=== PATIENT | female | born 1955 | race Caucasian/White ===

== ENCOUNTER 2017-04-18 14:37 | Outpatient (CLI) | payer OTHER ==
--- NOTE | 2017-04-21 13:36 | Mammography Report ---
DIGITAL SCREENING MAMMOGRAM: 04/18/2017 CLINICAL INDICATION: A 61-year-old, for screening. COMPARISON: 03/2016, 06/2014, 05/2013, 04/2012, 04/2011. TECHNIQUE: Routine CC and MLO projections were obtained of the breasts. FINDINGS: Parenchymal tissue within both breasts is heterogeneously dense, which may lower the sensi tivity of mammography; however, there are no dominant masses, suspicious microcalcifications, or seco ndary signs of malignancy. In comparison to the previous studies, there are no significant changes. ASSESSMENT: NO MAMMOGRAPHIC EVIDENCE OF MALIGNANCY. NO SIGNIFICANT INTERVAL CHANGES. RECOMMENDATION: Screening mammography is recommended annually. BIRADS category 1 - negative. STANDARD QUALIFYING STATEMENTS 1. This examination was reviewed with the aid of Computed-Aided Detection (CAD). 2. A negative or benign imaging report should not delay biopsy if clinically suspicious findings are present. Consider surgical consultation if warranted. More than 5% of cancers are not identified by i maging. 3. Dense breasts may obscure an underlying neoplasm. JOB #: [id number] EXT JOB #:[id number]
== END 2017-04-18 14:38 | disposition home or self-care (01) ==
LOC: DI.N 14:37
PROVIDERS: ATTEND Family Medicine
DX: Z12.31 Encounter for screening mammogram for malignant neoplasm of breast (principal)
CPT/HCPCS: 77067

== ENCOUNTER 2018-09-02 08:00 | Outpatient (CLI) | payer OTHER ==
[2018-09-02 13:11] LABS: BASOPHILS # (AUTO) 0.2 10^3/uL (0.0-0.1); BASOPHILS % (AUTO) 1.9 %; EOSINOPHILS # (AUTO) 0.1 10^3/uL (0.0-0.7); EOSINOPHILS % (AUTO) 1.8 %; HGB - HEMOGLOBIN 15.1 g/dL (12.0-16.0); LYMPHOCYTES # (AUTO) 1.4 10^3/uL (1.5-3.5); LYMPHOCYTES % (AUTO) 17.8 %; MEAN CORPUSCULAR HEMOGLOBIN 30.1 pg (27.0-31.0); MEAN CORPUSCULAR HGB CONC 33.9 g/dL (32.0-36.0); MEAN CORPUSCULAR VOLUME 88.9 fL (81.0-99.0); MEAN PLATELET VOLUME 8.2 fL (7.9-10.8); MONOCYTES # (AUTO) 0.7 10^3/uL (0.0-1.0); MONOCYTES % (AUTO) 8.5 %; NEUTROPHILS # (AUTO) 5.5 10^3/uL (1.5-6.6); PLT - PLATELET COUNT 253 10^3/uL (130-450); RED CELL DISTRIBUTION WIDTH 12.4 % (12.0-15.0); WHITE BLOOD COUNT 7.8 x10^3/uL (4.8-10.8)
[2018-09-02 13:36] LABS: ALBUMIN 4.5 g/dL (3.2-5.5); ALBUMIN/GLOBULIN RATIO 1.6 (1.0-2.2); ALKALINE PHOSPHATASE 76 IU/L (42-121); ALT ALANINE AMINOTRANSFERASE 19 IU/L (10-60); AST ASPARTATE AMINOTRANSFERASE 18 IU/L (10-42); BILIRUBIN,TOTAL 1.4 mg/dL (0.2-1.0); BUN - BLOOD UREA NITROGEN 18 mg/dL (6-20); CALCIUM 9.3 mg/dL (8.5-10.3); CARBON DIOXIDE - CO2 25 mmol/L (21-32); CHLORIDE 99 mmol/L (101-111); CHOL/HDL RATIO 4.4 (<4.4); CHOLESTEROL 200 mg/dL; CREATININE 0.8 mg/dL (0.4-1.0); GFR - MDRD 72 (>89); GLUCOSE 109 mg/dL (70-100); HDL CHOLESTEROL 45 mg/dL; LDL CHOLESTEROL,CALCULATED 129 mg/dL; LDL/HDL RATIO 2.9 (<4.4); SODIUM 134 mmol/L (135-145); TOTAL PROTEIN 7.3 g/dL (6.7-8.2); VLDL CHOLESTEROL 26 mg/dL
[2018-09-02 13:57] LABS: HB2 TOTAL 16.6 g/dL; HEMOGLOBIN A1C 0.65 g/dL; HEMOGLOBIN A1C % 5.7 % (4.6-6.2)
== END 2018-09-02 23:59 | disposition home or self-care (01) ==
LOC: LAB.WCP 08:00
PROVIDERS: ATTEND Physician Assistant
DX: E78.5 Hyperlipidemia, unspecified (principal); R73.9 Hyperglycemia, unspecified; Z79.899 Other long term (current) drug therapy
CPT/HCPCS: 36415; 80053; 80061; 83036; 83721; 85025

== ENCOUNTER 2018-11-24 13:49 | Outpatient (CLI) | payer OTHER ==
--- NOTE | 2018-11-24 14:47 | XRAY Report ---
Reason: ABDOMINAL DISCOMFORT Procedure Date: 11/24/2018 Accession Number: [id number] / [id number] Procedure: XR - Abdomen Acute CPT Code: FULL RESULT: EXAM: ABDOMINAL SERIES AND PA CHEST EXAM DATE: 11/24/2018 02:07 PM. CLINICAL HISTORY: Cramping and infraumbilical abdominal discomfort for 3 days. Fever for 3 days. COMPARISON: Chest radiograph 04/14/2017. TECHNIQUE: 2 views abdomen and 1 view chest. FINDINGS: CHEST: Lungs/Pleura: No focal opacities. No effusion or pneumothorax. Mediastinum: There is borderline overall enlargement of the cardiac silhouette with abnormal right cardiac border, rounded protrusion which is nonspecific but can be seen in the setting of pericardial defect, prominent epicardial fat pad and other etiologies. This is stable compared to 2017. ABDOMEN: Bowel Gas Pattern: There is an overall paucity of bowel gas. Ill-defined linear calcifications in the right lower quadrant potentially represent chain suture material. Free Air: None. Other: None. IMPRESSION: Nonobstructive bowel gas pattern. Correlate finding of calcifications in the right lower quadrant to potential history of bowel resection to exclude concern for foreign body. Stable appearance of the cardiac silhouette as discussed above. RADIA
== END 2018-11-24 13:50 | disposition home or self-care (01) ==
LOC: DI 13:49
PROVIDERS: ATTEND Family Medicine
DX: R10.9 Unspecified abdominal pain (principal)
CPT/HCPCS: 74022

== ENCOUNTER 2019-02-19 15:36 | Inpatient (IN) | payer OTHER ==
[2019-02-19] MEDS ORDERED: SODIUM CHLORIDE 0.9% 1,000 ML IV ONE ×2 (15:52→17:33)
--- NOTE | 2019-02-19 16:05 | ED Physician Documentation ---
PD HPI ABD PAIN - Stated complaint Stated Complaint: ABD PX - Chief complaint Chief Complaint: Abd Pain - History obtained from History obtained from: Patient - History of Present Illness Timing - onset: Yesterday (She developed central abdominal pain yesterday which overnight progressed to more right lower quadrant pain. It was associated with diarrhea that stopped this morning at 7 AM. She is been nauseous but has not vomited. She has had chills. No history of abdominal surgeries.) Review of Systems Ten Systems: 10 systems reviewed and negative Constitutional: reports: Chills Cardiac: denies: Chest pain / pressure, Palpitations Respiratory: reports: Cough (chronic). denies: Dyspnea GI: reports: Abdominal Pain, Nausea, Diarrhea. denies: Vomiting PD PAST MEDICAL HISTORY - Past Medical History Cardiovascular: High cholesterol Respiratory: None Psych: None Musculoskeletal: Osteoarthritis - Allergies Allergies/Adverse Reactions: Allergies Allergy/AdvReac Type Severity Reaction Status Date / Time Penicillins Allergy Hives Verified 02/19/19 15:40 Sulfa (Sulfonamide Allergy Hives Verified 02/19/19 15:40 Antibiotics) - Family History Family history: reports: Non contributory PD ED PE NORMAL - Vitals Vital signs reviewed: Yes - General General: Alert and oriented X 3, No acute distress - HEENT HEENT: PERRL, EOMI - Neck Neck: Supple, no meningeal sign, No bony TTP - Cardiac Cardiac: RRR, No murmur - Respiratory Respiratory: No respiratory distress, Clear bilaterally - Abdomen Abdomen: Other (Soft with focal tenderness in the right lower quadrant. No surgical signs.) - Back Back: No CVA TTP, No spinal TTP - Derm Derm: Normal color, Warm and dry - Extremities Extremities: No edema, No calf tenderness / cord - Neuro Neuro: Alert and oriented X 3, Normal speech Results - Vitals Vitals: Vital Signs - 24 hr 02/19/19 02/19/19 02/19/19 15:40 16:00 17:30 Temperature 36.8 C Heart Rate 120 H 90 142 H Respiratory 16 18 16 Rate Blood Pressure 100/60 108/68 91/43 L O2 Saturation 96 96 94 02/19/19 02/19/19 02/19/19 17:48 18:03 18:25 Temperature 38.2 C H Heart Rate 157 H 155 H 52 L Respiratory 34 H 28 H 3 L Rate Blood Pressure 91/59 L 97/61 99/88 H O2 Saturation 9 L 96 94 Oxygen O2 Source Nasal cannula - EKG (time done) 1751 Rate: Rate (enter#) (153) Rhythm: Sinus tachycardia, LAE [place]: LAD Intervals: Normal IA QRS: Normal Ischemia: Non specific changes. No: ST elevation c/w ischemia Computer interpretation: Agree with computer - Labs Labs: Laboratory Tests 02/19/19 02/19/19 02/19/19 16:00 16:00 16:00 WBC 23.9 H RBC 4.90 Hgb 14.9 Hct 44.0 MCV 89.8 MCH 30.4 MCHC 33.9 RDW 12.2 Plt Count 268 MPV 9.6 Neut # (Auto) 20.9 H Lymph # (Auto) 1.0 L [place] # (Auto) 1.6 H Eos # (Auto) 0.0 Baso # (Auto) 0.1 Absolute Nucleated RBC 0.00 Band Neuts % (Manual) Not Reportable Abnorm Lymph % (Manual) Not Reportable Nucleated RBC % 0.0 Neutrophils # (Manual) Not Reportable Lymphocytes # (Manual) Not Reportable Monocytes # (Manual) Not Reportable Eosinophils # (Manual) Not Reportable Basophils # (Manual) Not Reportable Differential Comment MANUAL=AUTO DIFF Manual Slide Review Indicated Platelet Estimate NORMAL (130-450,000) Platelet Morphology NORMAL APPEARANCE RBC Morph Micro Appear NORMAL APPEARANCE Sodium 138 Potassium 3.7 Chloride 100 L Carbon Dioxide 25 Anion Gap 13.0 BUN 15 Creatinine 0.8 Estimated GFR (MDRD) 72 L Glucose 155 H POC Whole Bld Glucose Lactic Acid Calcium 9.7 Total Bilirubin 1.5 H AST 16 ALT 16 Alkaline Phosphatase 82 Total Protein 7.5 Albumin 4.6 Globulin 2.9 Albumin/Globulin Ratio 1.6 Lipase 23 Urine Color YELLOW Urine Clarity CLOUDY Urine pH 7.0 Ur Specific [place] 1.020 Urine Protein TRACE Urine Glucose (UA) NEGATIVE Urine Ketones 15 H Urine Occult Blood SMALL H Urine Nitrite POSITIVE H Urine Bilirubin NEGATIVE Urine Urobilinogen 0.2 (NORMAL) Ur Leukocyte Esterase SMALL H Urine RBC 0-5 Urine WBC 6-10 H Ur Squamous Epith Cells MOD Squamous H Urine Bacteria Moderate H Urine Mucus Few Strands Ur Microscopic Review INDICATED Urine Culture Comments NOT INDICATED 02/19/19 02/19/19 17:38 18:09 WBC RBC Hgb Hct MCV MCH MCHC RDW Plt Count MPV Neut # (Auto) Lymph # (Auto) [place] # (Auto) Eos # (Auto) Baso # (Auto) Absolute Nucleated RBC Band Neuts % (Manual) Abnorm Lymph % (Manual) Nucleated RBC % Neutrophils # (Manual) Lymphocytes # (Manual) Monocytes # (Manual) Eosinophils # (Manual) Basophils # (Manual) Differential Comment Manual Slide Review Platelet Estimate Platelet Morphology RBC Morph Micro Appear Sodium Potassium Chloride Carbon Dioxide Anion Gap BUN Creatinine Estimated GFR (MDRD) Glucose POC Whole Bld Glucose 144 H Lactic Acid 2.3 H Calcium Total Bilirubin AST ALT Alkaline Phosphatase Total Protein Albumin Globulin Albumin/Globulin Ratio Lipase Urine Color Urine Clarity Urine pH Ur Specific [place] Urine Protein Urine Glucose (UA) Urine Ketones Urine Occult Blood Urine Nitrite Urine Bilirubin Urine Urobilinogen Ur Leukocyte Esterase Urine RBC Urine WBC Ur Squamous Epith Cells Urine Bacteria Urine Mucus Ur Microscopic Review Urine Culture Comments - Rads (name of study) CT A/P Radiology: EMP read contemporaneously (13mm appendicitis with appendicolith. Pericardial mass needing followup (shared report with pt)) CT Head Radiology: EMP read contemporaneously (NAD) PD MEDICAL DECISION MAKING - ED course ED course: 63-year-old woman presents with right lower quadrant pain, she declined pain medication, the story was very consistent with appendicitis which was proven on CT. The surgeon was called but he was in the OR so there was approached by the nurse at approximately 5:30 PM and called into the room. The patient suddenly had altered mental status. She was alert and oriented to person and place, but really not talking much. She did not have any focal neurologic deficits. She could squeeze both hands and raise either leg off the bed. She could smile. But she was definitely confused. She was sent over for CT of the head. She did not receive any medications yet at that time, the antibiotics and the Ofirmev had not yet been started. It seemed like she was just getting septic though, head CT was negative. Her mental status improved with IV fluids. Dr. Moody expeditiously took her to the operating room for source control. She received a total of 3 liters of crystalloid while in the emergency department, 2 L of saline, 1 L of LR. - Critical Care Time(min): 40 Time Includes: Direct patient care, Review records, Reassess patient, Document care, Coordinate care, Medical consult, Family consult for tx dec Data interpretation: Labs Procedures included in critical care time: Peripheral IV Procedures excluded from critical care time: EKG Departure - Departure Disposition: ED Transfer to [facility] Clinical Impression: Appendicitis Qualifiers: Appendicitis type: acute appendicitis Acute appendicitis type: with localized peritonitis Appendicitis gangrene presence: without gangrene Appendicitis perforation presence: without perforation Appendicitis abscess presence: without abscess Qualified Code(s): K35.30 - Acute appendicitis with localized peritonitis, without perforation or gangrene Sepsis Qualifiers: Sepsis type: sepsis due to unspecified organism Sepsis acute organ dysfunction status: with acute organ dysfunction Severe sepsis acute organ dysfunction type: encephalopathy Severe sepsis shock status: with septic shock Qualified Code(s): A41.9 - Sepsis, unspecified organism; R65.21 - Severe sepsis with septic shock; G93.40 - Encephalopathy, unspecified Altered mental status Qualifiers: Altered mental status type: delirium Qualified Code(s): R41.0 - Disorientation, unspecified Condition: Fair Discharge Date/Time: 02/19/19 18:39
[2019-02-19 16:09] LABS: BASOPHILS # (AUTO) 0.1 10^3/uL (0.0-0.1); BASOPHILS % (AUTO) 0.4 %; EOSINOPHILS % (AUTO) 0.1 %; HGB - HEMOGLOBIN 14.9 g/dL (12.0-16.0); LYMPHOCYTES % (AUTO) 4.2 %; MEAN CORPUSCULAR HEMOGLOBIN 30.4 pg (27.0-31.0); MEAN CORPUSCULAR HGB CONC 33.9 g/dL (32.0-36.0); MEAN CORPUSCULAR VOLUME 89.8 fL (81.0-99.0); MEAN PLATELET VOLUME 9.6 fL (7.9-10.8); MONOCYTES # (AUTO) 1.6 10^3/uL (0.0-1.0); MONOCYTES % (AUTO) 6.8 %; NEUTROPHILS # (AUTO) 20.9 10^3/uL (1.5-6.6); NEUTROPHILS % (AUTO) 87.5 %; PLT - PLATELET COUNT 268 10^3/uL (130-450); RED CELL DISTRIBUTION WIDTH 12.2 % (12.0-15.0); WHITE BLOOD COUNT 23.9 x10^3/uL (4.8-10.8)
[2019-02-19 16:21] LABS: ALBUMIN 4.6 g/dL (3.2-5.5); ALBUMIN/GLOBULIN RATIO 1.6 (1.0-2.2); BILIRUBIN,TOTAL 1.5 mg/dL (0.2-1.0); CALCIUM 9.7 mg/dL (8.5-10.3); CREATININE 0.8 mg/dL (0.4-1.0); TOTAL PROTEIN 7.5 g/dL (6.7-8.2)
[2019-02-19] MEDS ORDERED: IOVERSOL 320 100 ML VIAL IVP ONE ×2 (16:44→16:50)
[2019-02-19 16:52] LABS: DIFFERENTIAL COMMENT MANUAL=AUTO DIFF; PLATELET ESTIMATE, MANUAL NORMAL (130-450,000) (NORMAL); PLATELET MORPHOLOGY NORMAL APPEARANCE (NORMAL); RBC MORPHOLOGY (MULTIPLE) NORMAL APPEARANCE (NORMAL)
[2019-02-19] MEDS ORDERED: cefOXitin 2 GM in SODIUM CHLORIDE 0.9% MINIBAG 100 ML IV STA (17:05)
[2019-02-19] MEDS ORDERED: ACETAMINOPHEN 1,000 MG/100 ML 100 ML IV STA (17:05)
--- NOTE | 2019-02-19 17:17 | CT Report ---
Reason: IV only, RLQ pain Procedure Date: 02/19/2019 Accession Number: [id number] / [id number] Procedure: CT - Abdomen/Pelvis W CPT Code: FULL RESULT: EXAM: CT ABDOMEN AND PELVIS EXAM DATE: 02/19/2019 04:47 PM. CLINICAL HISTORY: Right lower quadrant pain. COMPARISONS: CHEST 2 VIEW PA/LAT 04/14/2017 3:48 PM ABDOMEN ACUTE 11/24/2018 1:58 PM. TECHNIQUE: Routine helical CT imaging was performed through the abdomen and pelvis. IV contrast: 90 mL Optiray 320. Enteric contrast: No. Reconstructions: Coronal and sagittal. In accordance with CT protocol optimization, one or more of the following dose reduction techniques were utilized for this exam: automated exposure control, adjustment of mA and/or KV based on patient size, or use of iterative reconstructive technique. FINDINGS: Lung Bases: Potentially enhancing solid mass along the right pericardial fat measuring 3.9 x 3.3 cm is seen. Liver: Normal. No masses. Gallbladder/Bile Ducts: Unremarkable. Spleen: Normal. Pancreas: Normal. Adrenal Glands: Normal. Kidneys: Small cyst in the right mid kidney is seen. No masses or hydronephrosis. Peritoneal Cavity/Bowel: Bowel loops demonstrate no obstruction or ileus. There is mild inflammatory changes in the right lower quadrant region. A moderately dilated appendix measuring 2.0 cm with surrounding inflammatory changes is seen consistent with appendicitis. 13 mm appendicolith is seen near the base. Additional smaller appendicolith is seen in the tip. No abscess or free air. Trace free fluid is seen along the right paracolic gutter. Pelvic Organs: Mildly enlarged partly calcified heterogeneous uterus consistent with fibroids is seen. No pelvic adenopathy or free fluid is seen. Vasculature: No aneurysms or other significant abnormality. Bones: Diffuse degenerative changes are seen in the spine. No acute osseous abnormality is demonstrated. Other: None. IMPRESSION: 1. Acute appendicitis. 13 mm appendicolith at the appendiceal base is seen. No abscess or free air. 2. Incidentally noted potentially solid enhancing mass along the right pericardial fat measuring 3.9 cm. Finding is of uncertain malignant potential. Correlation with any prior cross-sectional imaging study is recommended. If none available, consider further evaluation with PET/CT. 3. Mildly enlarged fibroid uterus. RADIA
[2019-02-19] MEDS ORDERED: CEFOTETAN DISODIUM 2 GM in SODIUM CHLORIDE 0.9% MINIBAG 100 ML IV STA (17:41)
[2019-02-19 18:05] LABS: BILIRUBIN,URINE NEGATIVE (NEGATIVE); GLUCOSE, URINE (UA) NEGATIVE (NEGATIVE); KETONES,URINE (UA) 15 mg/dL (NEGATIVE); LEUKOCYTE ESTERASE, URINE SMALL (NEGATIVE); NITRITE,URINE POSITIVE (NEGATIVE); OCCULT BLOOD,URINE SMALL (NEGATIVE); PROTEIN,URINE TRACE mg/dL (NEGATIVE); UROBILINOGEN,URINE 0.2 (NORMAL) E.U./dL (NORMAL)
[2019-02-19 18:11] LABS: CLARITY,URINE CLOUDY (CLEAR)
--- NOTE | 2019-02-19 18:25 | CT Report ---
Reason: altered Procedure Date: 02/19/2019 Accession Number: [id number] / [id number] Procedure: CT - HEAD WO CPT Code: FULL RESULT: EXAM: CT HEAD EXAM DATE: 02/19/2019 05:48 PM. CLINICAL HISTORY: Altered. COMPARISON: HEAD W/O 06/03/2013 5:20 PM. TECHNIQUE: Multiaxial CT images were obtained from the foramen magnum to the vertex. Reformats: Sagittal and coronal. IV contrast: None. In accordance with CT protocol optimization, one or more of the following dose reduction techniques were utilized for this exam: automated exposure control, adjustment of mA and/or KV based on patient size, or use of iterative reconstructive technique. FINDINGS: Parenchyma: No intraparenchymal hemorrhage. No evidence of mass, midline shift, or CT findings of infarction. Bennett-white differentiation is distinct. Extraaxial Spaces: Normal for age. No subdural or epidural collections identified. Ventricles: Normal in size and position. Sinuses and Orbits: Left maxillary and sphenoid sinus mucosal thickening, suggestive of sinusitis. Bones: No evidence of fracture or calvarial defect. Other: None. IMPRESSION: No acute intracranial abnormality. RADIA
[2019-02-19 18:29] LABS: BACTERIA,URINE Moderate /HPF (None Seen); RBC,URINE 0-5 /HPF (0-5); SQUAMOUS EPITHELIAL CELL,UR MOD Squamous (<= Few)
[2019-02-19 18:30] LABS: MUCUS,URINE Few Strands
--- NOTE | 2019-02-19 18:30 | ANESTHESIA ---
Pre-Anesthesia VS, & Labs - Diagnosis appendicitis - Procedure laparoscopic appendectomy Vital Signs: Temp Pulse Resp BP Pulse Ox 38.2 C H 155 H 28 H 97/61 96 02/19/19 17:48 02/19/19 18:03 02/19/19 18:03 02/19/19 18:03 02/19/19 18:03 Height 5 ft 3 in Weight (kg) 80.2 kg Body Mass Index 31.3 - NPO >8 hours - Is Patient ?: No - Lab Results Current Lab Results: Laboratory Tests 02/19/19 17:38: POC Whole Bld Glucose 144 H 02/19/19 16:00: Sodium 138, Potassium 3.7, Chloride 100 L, Carbon Dioxide 25, Anion Gap 13.0, BUN 15, Creatinine 0.8, Estimated GFR (MDRD) 72 L, Glucose 155 H , Calcium 9.7, Total Bilirubin 1.5 H, AST 16, ALT 16, Alkaline Phosphatase 82, Total Protein 7.5, Albumin 4.6, Globulin 2.9, Albumin/Globulin Ratio 1.6, Lipase 23 02/19/19 16:00: WBC 23.9 H, RBC 4.90, Hgb 14.9, Hct 44.0, MCV 89.8, MCH 30.4, MCHC 33.9, RDW 12.2, Plt Count 268, MPV 9.6, Neut # (Auto) 20.9 H, Lymph # (Auto) 1.0 L, Sunflower # (Auto) 1.6 H, Eos # (Auto) 0.0, Baso # (Auto) 0.1, Absolute Nucleated RBC 0.00, Band Neuts % (Manual) Not Reportable, Abnorm Lymph % (Manual) Not Reportable, Nucleated RBC % 0.0, Neutrophils # (Manual) Not Reportable, Lymphocytes # (Manual) Not Reportable, Monocytes # (Manual) Not Repo rtable, Eosinophils # (Manual) Not Reportable, Basophils # (Manual) Not Reportable, Differential Comment MANUAL=AUTO DIFF, Manual Slide Review Indicated, Platelet Estimate NORMAL (130-450,000), Platelet Morphology NORMAL APPEARANCE, RBC Morph Micro Appear NORMAL APPEARANCE Fish Bones: 02/19/19 16:00 02/19/19 16:00 Home Medications and Allergies Allergies/Adverse Reactions: Allergies Allergy/AdvReac Type Severity Reaction Status Date / Time Penicillins Allergy Hives Verified 02/19/19 15:40 Sulfa (Sulfonamide Allergy Hives Verified 02/19/19 15:40 Antibiotics) Anes History & Medical History - Anesthetic History Anesthesia Complications: reports: No previous complications - Medical History Cardiovascular: reports: High cholesterol Pulmonary: reports: None Neuro: reports: Fainting (earlier today, negative head CT) Musculoskeletal: reports: Osteoarthritis Smoking Status: Never smoker Exam General: Alert Dental: WNL Mouth Opening: Greater than 4 Fingerbreadths Neck Mobility: Normal Mallampati classification: III Thyromental Distance: less than 4 cm Respiratory: Lungs clear Cardiovascular: Regular rate, Normal S1, Normal S2, Other Plan Anesthesia Type: General Consent for Procedure(s) Verified and Reviewed: Yes Code Status: Attempt Resuscitation ASA classification: 2-Mild systemic disease Is this case an emergency?: Yes
[2019-02-19] MEDS: LACTATED RINGERS 1,000 ML IV STA ×2 (18:33→23:28)
[2019-02-19] MEDS ORDERED: BUPIVACAINE 0.5% PF 10 ML VIAL ONE (18:39)
--- NOTE | 2019-02-19 18:39 | CONSULTATION NOTE ---
Referring Provider Name of Referring Provider:: Dr. Juan Fleming Consult Date: 02/19/19 Chief Complaint - Chief Complaint Chief Complaint: Right lower quadrant pain worsened with motion History of Present Illness - Admitted From Admitted From:: [facility] ED Room 1 - History Obtained From Records Reviewed: Yes History obtained from: Patient, chart, and Dr. Fleming Exam Limitations: None - History of Present Illness HPI Comment/Other: The patient is a 63-year-old female whose symptoms started yesterday at 6 PM. The pain was initially in the chest then localizing to the right lower quadrant. Associated with nausea and worsened with motion. Worsening over the intervening time to the point where she came into the emergency department. States that she could only get in at around 2:30. History - Past Medical History Cardiovascular: reports: High cholesterol Respiratory: reports: None Neuro: reports: Fainting (earlier today, negative head CT) Psych: reports: None Musculoskeletal: reports: Osteoarthritis Meds/Allgy - Allergies Allergies/Adverse Reactions: Allergies Allergy/AdvReac Type Severity Reaction Status Date / Time Penicillins Allergy Hives Verified 02/19/19 15:40 Sulfa (Sulfonamide Allergy Hives Verified 02/19/19 15:40 Antibiotics) Review of Systems - Constitutional Constitutional: denies: Fatigue - Eyes Eyes: denies: Pain - Ears, Nose & Throat Ears, Nose & Throat: denies: Ear pain - Cardiovascular Cariovascular: reports: Chest pain - Respiratory Respiratory: denies: Cough - Gastrointestinal Gastrointestinal: reports: Abdominal pain, Nausea - Neurological Neurological: denies: General weakness, Focal weakness Exam - Vital Signs Reviewed Vital Signs: Yes Vital Signs: Vital Signs x48h Temp Pulse Resp BP Pulse Ox 02/19/19 18:25 52 L 3 L 99/88 H 94 02/19/19 18:03 155 H 28 H 97/61 96 02/19/19 17:48 38.2 C H 157 H 34 H 91/59 L 9 L 02/19/19 17:30 142 H 16 91/43 L 94 02/19/19 16:00 90 18 108/68 96 02/19/19 15:40 36.8 C 120 H 16 100/60 96 - Physical Exam General Appearance: positive: Moderate distress, Anxious Eyes Bilateral: positive: No lid inflammation, Conjunctivae nml, No scleral icterus ENT: positive: Dry mucous membranes Neck: positive: Trachea midline Respiratory: positive: Breath sounds nml, Rhonchi Cardiovascular: positive: Tachycardia Abdomen: positive: Tenderness (RLQ peritoneal.), Abnml bowel sounds (None.) Skin: positive: Pallor Extremities: positive: Non-tender, Nml appearance Neurologic/Psychiatric: positive: Oriented x3, Motor nml, Sensation nml, Mood/affect nml Conclusion/Plan - Diagnosis Diagnosis: Acute appendicitis although the presentation is somewhat atypical with a very high white blood cell count, tachycardia, hypotension and tachypnea - Plan Plan: Urgent laparoscopic appendectomy, possible open appendectomy. The indications, procedure, alternatives including no surgery, possible risks including infection (deep or superficial), bleeding requiring transfusion (with all of its risks), and were fully explained to the patient and all questions answered. I also explained the pathophysiology. I explained that following the surgery I did not want her lifting anything over 15 pounds for 6 weeks to allow for optimal healing and to decrease the likelihood that a hernia would occur. All questions were fully answered. Verbal and written consent was obtained. The patient, in preparation for surgery will be nothing by mouth, and receive either 2 gm Cefotetan or 2 gm Cefoxitin with induction. I asked her to contact me with any surgical questions and her concerns and she stated that she would. I asked her to let me know if there is any way we can make her stay at [facility] more comfortable and she stated that she would let me know. The plan is to do this operation as an outpatient procedure and keep her overnight due to her septic appearance. 45 minutes of [id number] time spent with the patient, over 80% in discussion and coordination of her care Corina disclaimer: This document was created in part using voice recognition technology. Because of the inherent limitations of the system ([email or web address] user manual states that the licensee understands that speech recognition is a statistical process and that recognition errors are inherent in the process), occasional same sounding word substitutions and grammatical errors do occur and persist despite proofreading. Please read this document for context. - Lab Results Fish Bones: 02/19/19 16:00 02/19/19 16:00
[2019-02-19] MEDS ORDERED: PHENYLEPHRINE 10 MG/ML VIAL IV ONE (18:41)
[2019-02-19] MEDS ORDERED: fentaNYL 100 MCG/2 ML VIAL IVP ONE (18:41)
[2019-02-19] MEDS ORDERED: LIDOCAINE-MPF 2% 5 ML VIAL IM ONE (18:41)
[2019-02-19] MEDS ORDERED: ETOMIDATE 40 MG/20 ML VIAL IVP ONE (18:41)
[2019-02-19] MEDS ORDERED: MIDAZOLAM 2 MG/2 ML VIAL IVP ONE (18:41)
[2019-02-19] MEDS ORDERED: NEOSTIGMINE 1 MG/1 ML 10 ML MDV IVP ONE (18:41)
[2019-02-19] MEDS ORDERED: GLYCOPYRROLATE 1 MG/5 ML VIAL IVP ONE (18:41)
[2019-02-19] MEDS ORDERED: BUPIVACAINE 0.5% PF 10 ML VIAL IM ONE (19:21)
[2019-02-19] MEDS ORDERED: LACTATED RINGERS 1,000 ML IV ONE ×4 (19:21→23:24)
[2019-02-19] MEDS ORDERED: PHENYLEPHRINE 10 MG/ML VIAL ONE ×2 (21:03→23:13)
--- NOTE | 2019-02-19 21:06 | OPERATIVE REPORT ---
Operative Report - General Procedure Date: 02/19/19 Planned Procedure: Laparoscopic appendectomy, possible open appendectomy Pre-Op Diagnosis: Acute appendicitis Procedure Performed: Laparoscopic appendectomy Post Op Diagnosis: Acute separative appendicitis with likely perforation - Procedure Note Primary Surgeon: Alex Moody MD Anesthesia Provider: Yoko George CRNA Anesthesia Technique: General ET tube, Local (30 mL of half percent Marcaine) IV Fluids (mL): 2,000 Estimated Blood Loss (mL): 10 Drain/Tube Type: Other (None.) Findings: Acute separative appendicitis with likely microperforation Complications: None - Other Other Information/Narrative: OPERATIVE DESCRIPTION/REPORT: After verbal and written informed consent was obtained detailing the risks of infection, bleeding requiring transfusion with its risks, and , and after I met with the patient confirming the surgery and the site of the surgery, the patient was brought to the operative suite urgently due to her tachycardia and hypotension and placed supine on the operating table. Great care was taken to avoid pressure points to prevent pressure necrosis or nerve injury. Monitoring devices were applied along with TEDs and pneumatic compressive stockings (to prevent DVT). The patient received preoperative antibiotics for surgical prophylaxis. Yoko George CRNA sedated and anesthetized the patient for the entire procedure. The patient was prepped and draped in the usual sterile manner. With the patient draped my initials were clearly visible. A "time in" then confirmed that the patient was identified with 3 identifiers (name, date and medical record number), the history and physical was in the chart, the signed consent confirming the procedure was in the chart, the patient was in the correct position, the aforementioned prophylactic measures were in place or given, we had the correct personnel and equipment to complete the procedure and that anesthesia, surgery and nursing were given an opportunity to express any concerns. With the agreement of everyone in the room, we proceeded with the operation. A 2 cm umbilical incision was made and dissection down to the fascia was completed in a blunt and sharp manner. The fascia was then cleared of subcutaneous tissue using a tonsil clamp and a small incision was made in the fascia gaining entry into the abdomen without incident. A 12 mm blunt tipped balloon tipped Trevon port was placed into the abdomen and the balloon inflated to keep it in place. The pneumoperitoneum was then established using carbon dioxide insufflation to a steady state pressure of 12 mmHg. Two additional 5 mm ports were placed in the midline above and below the umbilicus. The patient was then rotated slightly to their left and slightly head down (Trendelenberg). The appendix was markedly thickened with fibrinous exudate and numerous adhesions. When I would grasp the adhesions it was as though pus was being squeezed out of the adhesions. There was no visible perforation. A photograph was taken of this markedly thickened appendix. The end of the appendix was grasped with a Prestige grasper and lifted anteriorly thus revealing the appendiceal mesentery. The mesentery was taken using sequential application of the Ligasure until the base of the appendix was visualized without any adherent tissue. The base of the appendix was then stapled and transected using a laparoscopic vascular stapler. Visualization of the staple line revealed absolutely no bleeding or leak of bowel contents. The appendix was then place into an endopouch for the remainder of the case. The patient was then rotated to lie flat. The abdomen was then copiously irrigated with 2 L of warm sterile saline. The effluent returned clear. The fascia and skin were then injected with the 30 cc of % marcaine for pain control. The insufflation was released and the ports removed. With the removal of the umbilical port the Endopouch containing the appendix was also removed as were thickened adhesions that had marked fibrinous exudate and purulence attached to them.. The fascial defect was then approximated using 0-Vicryl s uture in a simple interrupted manner taking care to bury the knots. The skin incisions were approximated with 4-0 Monocryl in a subcuticular fashion. The surgical prep was removed, and Dermabond was applied. A dressing was applied. At this point a time out was performed that confirmed that all the counts were correct, the procedure that was performed, the blood loss, the urine output, the IV fluids administered, and the patients condition. Having tolerated the procedure well, the patient was subsequently extubated and taken to ICU in stable condition. Please note that the patient had received 4 L of fluid between the emergency room as well as the operating room and upon discharge from the operating room to the intensive care unit the patient was still receiving Collin-Synephrine to support her blood pressure. [employer] disclaimer: This document was created in part using voice recognition technology. Because of the inherent limitations of the system ([employer]'s [employer] user manual states that the licensee understands that speech recognition is a statistical process and that recognition errors are inherent in the process), occasional same sounding word substitutions and grammatical errors do occur and persist despite proofreading. Please read this document for context.
[2019-02-19] MEDS ORDERED: SODIUM CHLORIDE FLUSH 0.9% 10 ML SYRINGE IVP PRN (21:08)
[2019-02-19] MEDS ORDERED: HYDROmorphone 0.5 MG/0.5 ML SYRINGE IVP PRN (21:08)
[2019-02-19] MEDS ORDERED: oxyCODONE 5 MG TABLET PO PRN (21:08)
[2019-02-19] MEDS ORDERED: ONDANSETRON 4 MG/2 ML VIAL IVP PRN (21:08)
--- NOTE | 2019-02-19 21:33 | XRAY Report ---
Reason: CENTRAL LINE PLACEMENT Procedure Date: 02/19/2019 Accession Number: [id number] / [id number] Procedure: XR - Chest for Line Placement CPT Code: FULL RESULT: EXAM: CHEST RADIOGRAPHY EXAM DATE: 02/19/2019 09:27 PM. CLINICAL HISTORY: CENTRAL LINE PLACEMENT. COMPARISON: ABDOMEN ACUTE 11/24/2018 1:58 PM. TECHNIQUE: 1 view. FINDINGS: Lungs/Pleura: Moderate pulmonary edema. No focal opacities evident. No pleural effusion. No pneumothorax. Mediastinum: Status post right jugular venous catheter with its tip situated in cavoatrial junction. Within exam limitations, mild stable cardiomegaly noted. Other: Well-positioned endotracheal tube. IMPRESSION: Mild stable cardiomegaly with moderate pulmonary edema. Right jugular venous catheter and endotracheal tube are well-positioned. RADIA
[2019-02-19] MEDS: PHENYLEPHRINE 20 MG in SODIUM CHLORIDE 0.9% 248 ML IV SCH ×2 (21:40→23:45)
--- NOTE | 2019-02-19 21:42 | CONSULTATION NOTE ---
Referring Provider Name of Referring Provider:: Dr. Alex Moody Consult Date: 02/19/19 Chief Complaint - Chief Complaint Chief Complaint: Abdominal pain History of Present Illness - Admitted From Admitted From:: Home - History Obtained From Records Reviewed: Yes History obtained from: Patient's son, EMR Exam Limitations: Patient is intubated - History of Present Illness HPI Comment/Other: This is a 63 year old female with no significant past medical history who presented from home today after complaining of abdominal and chest pain that began yesterday evening. Her son tells me that she felt the pain around 6pm last night and was initially located in her chest. Then the pain became most prominent in the right lower quadrant. The patient had difficulty sleeping last night because of the pain. In the ER, she was found to be febrile, tachycardic, and hypotensive. Labs revealed significant leukocytosis with a left shift. She had a CT of the abdomen/pelvis performed which was concerning for appendicitis without an identifiable abscess. General Surgery was consulted and she went to the OR for laparoscopic appendectomy. It appeared that she suppurative appendicitis with likely perforation. She was hypotensive while in the OR and required Neosynephrine. She was given a total of 4.6L of crystalloid. She could not be extubated postoperatively due to poor tidal volumes and so she was transferred to the ICU for further management and Medicine was consulted to assist with medical and ventilatory management. History - Past Medical History Cardiovascular: reports: High cholesterol Respiratory: reports: None Psych: reports: None Musculoskeletal: reports: Osteoarthritis - Family & Social History Family History Comment/Other: Her son reports no family history to his knowledge. Social History Notes: Her son reports that she does not smoke but does occasionally drink alcohol. - Substance History Use: Uses substance without health or social issues: NONE Meds/Allgy - Allergies Allergies/Adverse Reactions: Allergies Allergy/AdvReac Type Severity Reaction Status Date / Time Penicillins Allergy Hives Verified 02/19/19 15:40 Sulfa (Sulfonamide Allergy Hives Verified 02/19/19 15:40 Antibiotics) Review of Systems - All Other Systems All Other Systems: reports: Other (Unable to obtain ROS as patient is intubated) Exam - Vital Signs Reviewed Vital Signs: Yes Vital Signs: Vital Signs x48h Temp Pulse Resp BP Pulse Ox 02/19/19 18:25 52 L 3 L 99/88 H 94 02/19/19 18:03 155 H 28 H 97/61 96 02/19/19 17:48 38.2 C H 157 H 34 H 91/59 L 9 L 02/19/19 17:30 142 H 16 91/43 L 94 02/19/19 16:00 90 18 108/68 96 02/19/19 15:40 36.8 C 120 H 16 100/60 96 - Physical Exam General Appearance: positive: No acute distress, Other (Follows commands) Eyes Bilateral: positive: Normal inspection ENT: positive: ENT inspection nml, Other (ET tube in place) Neck: positive: Nml inspection Respiratory: positive: Breath sounds nml. negative: Wheezes, Rales, Rhonchi Cardiovascular: positive: No murmur, Tachycardia. negative: Systolic murmur, Diastolic murmur Abdomen: positive: Tenderness, Abnml bowel sounds (Hypoactive bowel sounds). negative: No distention, Guarding, Rebound Skin: positive: No rash, Warm, Dry Extremities: positive: No pedal edema Neurologic/Psychiatric: positive: Other (No focal motor deficits on exam. [place] rgic from sedation but follows commands.) Conclusion/Plan - Diagnosis Diagnosis: 1) Sepsis with septic shock. 2) Acute hypoxic respiratory failure. 3) Appendicitis. 4) Lactic acidosis. 5) Pericardial mass - Plan Plan: She has sepsis with septic shock likely secondary to her appendicitis. She is hypotensive requiring pressors, tachycardic, febrile, and has significant leukocytosis with a left shift. She also has a lactic acidosis. No other obvious source of infection at this time. She does have mild pyuria but her urinalysis is not that impressive. At this time, will continue Cefotetan and Flagyl to cover for gram negatives and anaerobes. Will continue to hydrate her with crystalloid. Will add Levophed in addition to Neosynephrine. She may require Vasopressin and stress dose steroids. Dilaudid for pain control. She will require an arterial line for blood pressure monitoring. Follow up her blood cultures. NPO for now. She remains intubated post-operatively and is currently saturating mid 90's on an FiO2 Of 60%. Her x-ray is not suggestive of pulmonary edema and there is no o bvious infiltrate. Suspect her respiratory failure is secondary to her sepsis. Will continue mechanical ventilation until her hemodynamics improve. Will hope to extubate over the weekend. Propofol for sedation. She was also incidentally found to have a pericardial mass on her CT of the abdomen/pelvis. The mass is 3.9x3.3cm. She will require an outpatient PET/CT scan. - Lab Results Lab results reviewed: Yes Fish Bones: 02/19/19 16:00 02/19/19 16:00 - Diagnostic Imaging Results Diagnostic Imaging Results: positive: Final report reviewed - EKG Results EKG Interpreted Independently: Yes EKG Findings: Sinus tachycardia with nonspecific ST segment changes. Prolonged QT.
[2019-02-19] MEDS: ACETAMINOPHEN 1,000 MG/100 ML 100 ML IV SCH (21:45)
[2019-02-19] MEDS: DEXTROSE 5%-0.9% NACL 1,000 ML IV SCH (21:46)
[2019-02-19] MEDS: metroNIDAZOLE 500 MG/100 ML 500 MG/100 ML BAG IV SCH (21:46)
[2019-02-19] MEDS: SODIUM CHLORIDE FLUSH 0.9% 10 ML SYRINGE IVP SCH (21:50)
[2019-02-19] MEDS: HYDROmorphone 0.5 MG/0.5 ML SYRINGE IVP PRN (21:51)
[2019-02-19 22:00] LABS: MAGNESIUM 1.2 mg/dL (1.7-2.8); PHOSPHORUS 2.2 mg/dL (2.5-4.6)
[2019-02-19] MEDS ORDERED: PROPOFOL 1000 MG/100 ML 100 ML IV SCH (22:00)
[2019-02-19] MEDS ORDERED: CEFOTETAN DISODIUM 1 GM in SODIUM CHLORIDE 0.9% MINIBAG 100 ML IV SCH (22:00)
--- NOTE | 2019-02-19 22:02 | XRAY Report ---
Reason: ET Tube adjustment Procedure Date: 02/19/2019 Accession Number: [id number] / [id number] Procedure: XR - Chest for Line Placement CPT Code: FULL RESULT: EXAM: CHEST RADIOGRAPHY EXAM DATE: 02/19/2019 09:32 PM. CLINICAL HISTORY: ET tube adjustment. COMPARISON: CHEST FOR LINE PLACEMENT 02/19/2019 9:05 PM. TECHNIQUE: 1 view. FINDINGS: Lungs/Pleura: Low lung volumes. Hazy diffuse opacities obscuring pulmonary vasculature. No pleural effusion or pneumothorax. Mediastinum: Within exam limitations, the cardiomediastinal contour is normal. Other: Right IJ central line placed to lower SVC. Tip of endotracheal tube remains 2.7 cm above the ayse. IMPRESSION: 1. Endotracheal tube in stable position 2.7 cm above the ayse. 2. Stable central line position. 3. No pneumothorax. RADIA
[2019-02-19] MEDS ORDERED: MAGNESIUM SULFATE 2 GRAM 2 GM/50 ML BAG IV ONE (23:00)
[2019-02-19] MEDS ORDERED: POTASSIUM PHOSPHATE 15 MMOL in SODIUM CHLORIDE 0.9% 250 ML IV ONE (23:00)
[2019-02-19] MEDS ORDERED: LACTATED RINGERS 500 ML IV ONE (23:01)
[2019-02-19] MEDS: HYDROCORTISONE SUCCINATE 100 MG/2 ML VIAL IVP SCH (23:59)
[2019-02-20] MEDS ORDERED: LACTATED RINGERS 500 ML IV ONE (00:10)
[2019-02-20] MEDS ORDERED: PHENYLEPHRINE 10 MG/ML VIAL ONE ×2 (00:55→06:34)
--- NOTE | 2019-02-20 01:24 | PROCEDURE REPORT ---
Hospitalist Procedure Note - Procedure Note Procedure Note: This is a procedure note for an arterial line placed on 02/19/19 at 20:30 with the assistance of Yoko George CRNA. The procedure was performed in the ICU care unit and the indication was septic shock requiring multiple vasopressors and therefore an arterial line was placed for blood pressure monitoring. The procedure and site were verified. The patient's right wrist was prepped in sterile fashion. Ultrasound guidance was used to aid need placement. An Arrow arterial line was introduced into the radial artery. The catheter was threaded and the needle was removed but there was not blood return. The catheter was manipulated without success and was ultimately removed. Attention was then turned to the left wrist and that was prepped in sterile fashion. Ultrasound guidance was not used and an Arrow arterial line was introduced into the radial artery. The catheter was threaded and the needle was removed with appropriate blood return. A good wave form was observed. The patient tolerated the procedure well without complications. There was minimal blood loss.
[2019-02-20] MEDS: PHENYLEPHRINE 20 MG in SODIUM CHLORIDE 0.9% 248 ML IV SCH (01:30)
[2019-02-20] MEDS ORDERED: VASOPRESSIN 20 UNIT in DEXTROSE 5% 99 ML IV SCH (02:00)
[2019-02-20] MEDS: PHENYLEPHRINE IV SCH ×2 (03:30→06:54)
[2019-02-20] MEDS: SODIUM CHLORIDE 0.9% IV SCH ×2 (03:30→06:54)
[2019-02-20 04:38] LABS: BASOPHILS # (AUTO) 0.1 10^3/uL (0.0-0.1); BASOPHILS % (AUTO) 0.4 %; EOSINOPHILS % (AUTO) 0.1 %; HGB - HEMOGLOBIN 11.6 g/dL (12.0-16.0); LYMPHOCYTES # (AUTO) 0.6 10^3/uL (1.5-3.5); LYMPHOCYTES % (AUTO) 1.9 %; MEAN CORPUSCULAR HEMOGLOBIN 30.3 pg (27.0-31.0); MEAN CORPUSCULAR HGB CONC 33.1 g/dL (32.0-36.0); MEAN CORPUSCULAR VOLUME 91.4 fL (81.0-99.0); MEAN PLATELET VOLUME 10.1 fL (7.9-10.8); MONOCYTES # (AUTO) 0.9 10^3/uL (0.0-1.0); MONOCYTES % (AUTO) 2.8 %; NEUTROPHILS # (AUTO) 30.5 10^3/uL (1.5-6.6); NEUTROPHILS % (AUTO) 92.1 %; PLT - PLATELET COUNT 212 10^3/uL (130-450); RED BLOOD COUNT 3.83 10^6/uL (4.20-5.40); RED CELL DISTRIBUTION WIDTH 12.6 % (12.0-15.0); WHITE BLOOD COUNT 33.1 x10^3/uL (4.8-10.8)
[2019-02-20 04:53] LABS: ALBUMIN 2.4 g/dL (3.2-5.5); ALBUMIN/GLOBULIN RATIO 1.2 (1.0-2.2); BILIRUBIN,TOTAL 1.1 mg/dL (0.2-1.0); CREATININE 1.1 mg/dL (0.4-1.0); MAGNESIUM 1.8 mg/dL (1.7-2.8); PHOSPHORUS 3.2 mg/dL (2.5-4.6); TOTAL PROTEIN 4.4 g/dL (6.7-8.2)
[2019-02-20 05:17] LABS: ABG PH 7.38 (7.35-7.45)
[2019-02-20 05:18] LABS: ABG BASE EXCESS -9.9 mmol/L (-2.0-3.0); ABG HCO3 13.4 mmol/L (22.0-26.0); ABG OXYGEN SATURATION 95 % (94-98); ABG PCO2 23 mmHg (34-45); ABG PO2 73 mmHg (80-100); ABG TCO2 14.1 MMOL/L (21.0-29.0)
[2019-02-20 05:30] LABS: PLATELET MORPHOLOGY NORMAL APPEARANCE (NORMAL); RBC MORPHOLOGY (MULTIPLE) NORMAL APPEARANCE (NORMAL)
[2019-02-20 05:31] LABS: PLATELET ESTIMATE, MANUAL NORMAL (130-450,000) (NORMAL)
[2019-02-20] MEDS: ACETAMINOPHEN 1,000 MG/100 ML 100 ML IV SCH ×3 (05:33→17:21)
[2019-02-20] MEDS: POTASSIUM CHLOR 20 MEQ/100 ML 20 MEQ/100 ML BAG IV SCH ×4 (05:33→08:29)
[2019-02-20] MEDS: metroNIDAZOLE 500 MG/100 ML 500 MG/100 ML BAG IV SCH (05:34)
[2019-02-20] MEDS: DEXTROSE 5%-0.9% NACL 1,000 ML IV SCH (05:50)
[2019-02-20] MEDS: HYDROCORTISONE SUCCINATE 100 MG/2 ML VIAL IVP SCH ×2 (05:51→14:08)
[2019-02-20] MEDS ORDERED: CEFOTETAN DISODIUM 1 GM in SODIUM CHLORIDE 0.9% MINIBAG 100 ML IV SCH (06:00)
[2019-02-20] MEDS ORDERED: SODIUM CHLORIDE 0.9% 500 ML ONE (06:34)
[2019-02-20] MEDS ORDERED: DEXTROSE 5% 1,000 ML IV ONE (06:54)
[2019-02-20] MEDS ORDERED: SODIUM BICARBONATE ABBOJECT 50 MEQ/50 ML SYRINGE ONE ×2 (06:56→06:58)
[2019-02-20] MEDS ORDERED: SODIUM BICARBONATE 100 MEQ in DEXTROSE 5% 1,000 ML IV SCH (07:00)
[2019-02-20] MEDS ORDERED: PANTOPRAZOLE 40 MG VIAL IVP SCH (07:00)
[2019-02-20] MEDS: SODIUM CHLORIDE FLUSH 0.9% 10 ML SYRINGE IVP SCH ×2 (08:50→09:38)
[2019-02-20] MEDS ORDERED: CEFEPIME 2 GM in SODIUM CHLORIDE 0.9% MINIBAG 100 ML IV SCH (09:00)
[2019-02-20] MEDS: IMIPENEM/CILASTATIN 500 MG in SODIUM CHLORIDE 0.9% MINIBAG 100 ML IV SCH ×3 (09:20→18:13)
[2019-02-20] MEDS: HYDROmorphone 0.5 MG/0.5 ML SYRINGE IVP PRN ×2 (09:38→16:39)
[2019-02-20 10:06] LABS: ABG PCO2 36 mmHg (34-45); ABG PH 7.22 (7.35-7.45); ABG PO2 69 mmHg (80-100)
[2019-02-20 10:07] LABS: ABG BASE EXCESS -12.7 mmol/L (-2.0-3.0); ABG HCO3 14.1 mmol/L (22.0-26.0); ABG OXYGEN SATURATION 90 % (94-98); ABG TCO2 15.2 MMOL/L (21.0-29.0)
--- NOTE | 2019-02-20 11:51 | PROVIDER PROGRESS NOTE ---
Subjective - Prog Note Date Prog Note Date: 02/20/19 Prog Note Time: 11:28 - Subjective Pt reports feeling: No change Subjective: She is amazingly alert, and responsive while she is on an ET tube on a ventilator. She expresses emotions appropriately. Questions appropriately. Follows commands. She has been stable overnight with regards to vent settings, however, she is on 3 pressors. Overnight out supervisor tumblers is trying to temper too much fluids to avoid fluid overload and still maintaining her pressure. General surgery feels that the patient should be given more fluids and less pressors. General surgery's main concern is sources of shock. He wants to make sure that he is not missing any other sources of shock other than her appendix. She has grown out gram-negative rods in her blood. Current Medications - Current Medications Current Medications: Active Medications Hydrocortisone Sodium Succinate (Solu-Cortef) 100 mg IVP TID PAIGE Last Admin: 02/20/19 05:51 Dose: 100 mg Hydromorphone HCl (Dilaudid Inj Syringe) 1 mg IVP Q1H PRN PRN Reason: PAIN Last Admin: 02/20/19 09:38 Dose: 1 mg Acetaminophen (Ofirmev) 100 mls @ 400 mls/hr IV Q6H [facility] Last Infusion: 02/20/19 10:21 Dose: Infused Norepinephrine Bitartrate 8 mg (/ Dextrose) 250 mls @ 0 mls/hr IV .Q0M PAIGE; Protocol Last Admin: 02/20/19 10:51 Dose: 30 mcg/min, 56.25 mls/hr Vasopressin 20 unit/ Dextrose 100 mls @ 6 mls/hr IV .[id number] PAIGE; Protocol Last Titration: 02/20/19 08:45 Dose: 0 unit/min, 0 mls/hr Sodium Bicarbonate 100 meq/ (Dextrose) 1,100 mls @ 100 mls/hr IV .Q11H [facility] Last Admin: 02/20/19 06:49 Dose: 100 mls/hr Imipenem/Cilastatin Sodium 500 (mg/ Sodium Chloride) 100 mls @ 200 mls/hr IV Q6HR [facility] Last Infusion: 02/20/19 10:00 Dose: Infused Phenylephrine HCl 40 mg/ (Sodium Chloride) 504 mls @ 0 mls/hr IV .Q0M [facility]; Protocol Propofol (Diprivan) 100 mls @ 4.812 mls/hr IV .[id number] [facility]; Protocol Ondansetron HCl (Zofran Inj) 4 mg IVP Q6H PRN PRN Reason: Nausea / Vomiting Last Admin: 02/20/19 09:11 Dose: 4 mg Oxycodone HCl (Roxicodone) 5 mg PO Q4HR PRN PRN Reason: PAIN Pantoprazole Sodium (Protonix) 40 mg IVP QDAC [facility] Last Admin: 02/20/19 06:29 Dose: 40 mg Sodium Chloride (Normal Saline Flush 0.9%) 10 ml IVP 0100,0900,1700 [facility] Last Admin: 02/20/19 09:38 Dose: 10 ml Sodium Chloride (Normal Saline Flush 0.9%) 10 ml IVP PRN PRN PRN Reason: NEEDED PER PROVIDER ORDERS Objective - Vital Signs/Intake & Output Reviewed Vital Signs: Yes Vital Signs: Vital Signs Temp Pulse Pulse Resp BP BP Pulse Ox 02/20/19 11:05 112 H 02/20/19 11:00 117 H 24 80/57 L 94 02/20/19 10:09 114 H 02/20/19 10:00 111 H 18 81/60 L 92 02/20/19 09:00 140 H 40 H 86/57 L 93 02/20/19 08:46 105 H 02/20/19 08:28 108 H 02/20/19 08:00 37.2 C 108 H 28 H 80/66 L 81/67 L 96 Intake & Output: Intake & Output 02/17/19 02/18/19 02/19/19 02/20/19 23:59 23:59 23:59 23:59 Intake Total 2898.438 7112.533 Output Total 350 655 Balance 2548.438 6457.533 - Objective General Appearance: positive: Alert, Other (intubated, on vent.) Eyes Bilateral: positive: PERRL, EOMI Neck: positive: No JVD Respiratory: positive: No respiratory distress, Other (She was down to rate of 4-6 on vent, doing well but needed Fi02 60%. Blood gas with pH 7/216, pCO2 35.6, po2 68.7, BE -12.7). negative: Wheezes, Rales, Rhonchi Cardiovascular: positive: Regular rate & rhythm. negative: Systolic murmur, Gallop/S4, Friction rub Abdomen: positive: Other (no bowel sounds) Skin: positive: Warm, Dry, Pallor Extremities: positive: Full ROM, No pedal edema Neurologic/Psychiatric: positive: Oriented x3, CN's nml (2-12), Motor nml - Lab Results Fish Bones: 02/20/19 04:15 02/20/19 04:15 Other Labs: Lab Results x24hrs 02/20/19 02/20/19 02/20/19 Range/Units 09:40 07:50 05:15 WBC (4.8-10.8) x10^3/uL RBC (4.20-5.40) 10^6/uL Hgb (12.0-16.0) g/dL Hct (37.0-47.0) % MCV (81.0-99.0) fL MCH (27.0-31.0) pg MCHC (32.0-36.0) g/dL RDW (12.0-15.0) % Plt Count (130-450) 10^3/uL MPV (7.9-10.8) fL Neut # (Auto) (1.5-6.6) 10^3/uL Lymph # (Auto) (1.5-3.5) 10^3/uL [place] # (Auto) (0.0-1.0) 10^3/uL Eos # (Auto) (0.0-0.7) 10^3/uL Baso # (Auto) (0.0-0.1) 10^3/uL Absolute Nucleated RBC x10^3/uL Band Neuts % (Manual) Abnorm Lymph % (Manual) Nucleated RBC % /100WBC Neutrophils # (Manual) Lymphocytes # (Manual) Monocytes # (Manual) Eosinophils # (Manual) Basophils # (Manual) Differential Comment Manual Slide Review Platelet Estimate (NORMAL) Platelet Morphology (NORMAL) RBC Morph Micro Appear (NORMAL) Bld Gas Analysis Time [id number] [id number] Sample Site A-LINE ABG pH 7.22 L 7.38 (7.35-7.45) ABG pCO2 36 23 L* (34-45) mmHg ABG pO2 69 L 73 L (80-100) mmHg ABG HCO3 14.1 L 13.4 L (22.0-26.0) mmol/L ABG Total CO2 15.2 L 14.1 L (21.0-29.0) MMOL/L ABG O2 Saturation 90 L 95 (94-98) % ABG Base Excess -12.7 L -9.9 L (-2.0-3.0) mmol/L Hilton Test NOT APPLICABLE NOT APPLICABLE Respiration Rate 20 b/min O2 Delivery Device VENTILATOR Vent Mode SIMV FiO2 50.00 Tidal Volume 550 mL PEEP 5 cmH2O Pressure Support Vent 15 cmH2O Sodium (135-145) mmol/L Potassium (3.5-5.0) mmol/L Chloride (101-111) mmol/L Carbon Dioxide (21-32) mmol/L Anion Gap (6-13) BUN (6-20) mg/dL Creatinine (0.4-1.0) mg/dL Estimated GFR (MDRD) (>89) Glucose (70-100) mg/dL POC Whole Bld Glucose (70 - 100) mg/dL Lactic Acid 3.6 H* (0.5-2.2) mmol/L Calcium (8.5-10.3) mg/dL Phosphorus (2.5-4.6) mg/dL Magnesium (1.7-2.8) mg/dL Total Bilirubin (0.2-1.0) mg/dL AST (10-42) IU/L ALT (10-60) IU/L Alkaline Phosphatase (42-121) IU/L Total Protein (6.7-8.2) g/dL Albumin (3.2-5.5) g/dL Globulin (2.1-4.2) g/dL Albumin/Globulin Ratio (1.0-2.2) Lipase (22-51) U/L Urine Color Urine Clarity (CLEAR) Urine pH (5.0-7.5) PH Ur Specific [place] (1.002-1.030) Urine Protein (NEGATIVE) mg/dL Urine Glucose (UA) (NEGATIVE) mg/dL Urine Ketones (NEGATIVE) mg/dL Urine Occult Blood (NEGATIVE) Urine Nitrite (NEGATIVE) Urine Bilirubin (NEGATIVE) Urine Urobilinogen (NORMAL) E.U./dL Ur Leukocyte Esterase (NEGATIVE) Urine RBC (0-5) /HPF Urine WBC (0-5) /HPF Ur Squamous Epith Cells (<= Few) Urine Bacteria (None Seen) /HPF Urine Mucus Ur Microscopic Review Urine Culture Comments Nasal Screen MRSA (PCR) (NEGATIVE) 02/20/19 02/20/19 02/20/19 Range/Units 04:15 04:15 04:15 WBC 33.1 H (4.8-10.8) x10^3/uL RBC 3.83 L (4.20-5.40) 10^6/uL Hgb 11.6 L (12.0-16.0) g/dL Hct 35.0 L (37.0-47.0) % MCV 91.4 (81.0-99.0) fL MCH 30.3 (27.0-31.0) pg MCHC 33.1 (32.0-36.0) g/dL RDW 12.6 (12.0-15.0) % Plt Count 212 (130-450) 10^3/uL MPV 10.1 (7.9-10.8) fL Neut # (Auto) 30.5 H (1.5-6.6) 10^3/uL Lymph # (Auto) 0.6 L (1.5-3.5) 10^3/uL [place] # (Auto) 0.9 (0.0-1.0) 10^3/uL Eos # (Auto) 0.0 (0.0-0.7) 10^3/uL Baso # (Auto) 0.1 (0.0-0.1) 10^3/uL Absolute Nucleated RBC 0.00 x10^3/uL Band Neuts % (Manual) Abnorm Lymph % (Manual) Nucleated RBC % 0.0 /100WBC Neutrophils # (Manual) Lymphocytes # (Manual) Monocytes # (Manual) Eosinophils # (Manual) Basophils # (Manual) Differential Comment Manual Slide Review Indicated Platelet Estimate NORMAL (130-450,000) (NORMAL) Platelet Morphology NORMAL APPEARANCE (NORMAL) RBC Morph Micro Appear NORMAL APPEARANCE (NORMAL) Bld Gas Analysis Time Sample Site ABG pH (7.35-7.45) ABG pCO2 (34-45) mmHg ABG pO2 (80-100) mmHg ABG HCO3 (22.0-26.0) mmol/L ABG Total CO2 (21.0-29.0) MMOL/L ABG O2 Saturation (94-98) % ABG Base Excess (-2.0-3.0) mmol/L Hilton Test Respiration Rate b/min O2 Delivery Device Vent Mode FiO2 Tidal Volume mL PEEP cmH2O Pressure Support Vent cmH2O Sodium 134 L (135-145) mmol/L Potassium 2.9 L (3.5-5.0) mmol/L Chloride 108 (101-111) mmol/L Carbon Dioxide 16 L (21-32) mmol/L Anion Gap 10.0 (6-13) BUN 16 (6-20) mg/dL Creatinine 1.1 H (0.4-1.0) mg/dL Estimated GFR (MDRD) 50 L (>89) Glucose 233 H (70-100) mg/dL POC Whole Bld Glucose (70 - 100) mg/dL Lactic Acid 3.6 H* (0.5-2.2) mmol/L Calcium 7.0 L (8.5-10.3) mg/dL Phosphorus 3.2 (2.5-4.6) mg/dL Magnesium 1.8 (1.7-2.8) mg/dL Total Bilirubin 1.1 H (0.2-1.0) mg/dL AST 29 (10-42) IU/L ALT 17 (10-60) IU/L Alkaline Phosphatase 62 (42-121) IU/L Total Protein 4.4 L (6.7-8.2) g/dL Albumin 2.4 L (3.2-5.5) g/dL Globulin 2.0 L (2.1-4.2) g/dL Albumin/Globulin Ratio 1.2 (1.0-2.2) Lipase (22-51) U/L Urine Color Urine Clarity (CLEAR) Urine pH (5.0-7.5) PH Ur Specific [place] (1.002-1.030) Urine Protein (NEGATIVE) mg/dL Urine Glucose (UA) (NEGATIVE) mg/dL Urine Ketones (NEGATIVE) mg/dL Urine Occult Blood (NEGATIVE) Urine Nitrite (NEGATIVE) Urine Bilirubin (NEGATIVE) Urine Urobilinogen (NORMAL) E.U./dL Ur Leukocyte Esterase (NEGATIVE) Urine RBC (0-5) /HPF Urine WBC (0-5) /HPF Ur Squamous Epith Cells (<= Few) Urine Bacteria (None Seen) /HPF Urine Mucus Ur Microscopic Review Urine Culture Comments Nasal Screen MRSA (PCR) (NEGATIVE) 02/19/19 02/19/19 02/19/19 Range/Units 23:55 21:39 21:39 WBC (4.8-10.8) x10^3/uL RBC (4.20-5.40) 10^6/uL Hgb (12.0-16.0) g/dL Hct (37.0-47.0) % MCV (81.0-99.0) fL MCH (27.0-31.0) pg MCHC (32.0-36.0) g/dL RDW (12.0-15.0) % Plt Count (130-450) 10^3/uL MPV (7.9-10.8) fL Neut # (Auto) (1.5-6.6) 10^3/uL Lymph # (Auto) (1.5-3.5) 10^3/uL [place] # (Auto) (0.0-1.0) 10^3/uL Eos # (Auto) (0.0-0.7) 10^3/uL Baso # (Auto) (0.0-0.1) 10^3/uL Absolute Nucleated RBC x10^3/uL Band Neuts % (Manual) Abnorm Lymph % (Manual) Nucleated RBC % /100WBC Neutrophils # (Manual) Lymphocytes # (Manual) Monocytes # (Manual) Eosinophils # (Manual) Basophils # (Manual) Differential Comment Manual Slide Review Platelet Estimate (NORMAL) Platelet Morphology (NORMAL) RBC Morph Micro Appear (NORMAL) Bld Gas Analysis Time Sample Site ABG pH (7.35-7.45) ABG pCO2 (34-45) mmHg ABG pO2 (80-100) mmHg ABG HCO3 (22.0-26.0) mmol/L ABG Total CO2 (21.0-29.0) MMOL/L ABG O2 Saturation (94-98) % ABG Base Excess (-2.0-3.0) mmol/L Hilton Test Respiration Rate b/min O2 Delivery Device Vent Mode FiO2 Tidal Volume mL PEEP cmH2O Pressure Support Vent cmH2O Sodium (135-145) mmol/L Potassium (3.5-5.0) mmol/L Chloride (101-111) mmol/L Carbon Dioxide (21-32) mmol/L Anion Gap (6-13) BUN (6-20) mg/dL Creatinine (0.4-1.0) mg/dL Estimated GFR (MDRD) (>89) Glucose (70-100) mg/dL POC Whole Bld Glucose (70 - 100) mg/dL Lactic Acid 5.6 H* 4.5 H* (0.5-2.2) mmol/L Calcium (8.5-10.3) mg/dL Phosphorus 2.2 L (2.5-4.6) mg/dL Magnesium 1.2 L (1.7-2.8) mg/dL Total Bilirubin (0.2-1.0) mg/dL AST (10-42) IU/L ALT (10-60) IU/L Alkaline Phosphatase (42-121) IU/L Total Protein (6.7-8.2) g/dL Albumin (3.2-5.5) g/dL Globulin (2.1-4.2) g/dL Albumin/Globulin Ratio (1.0-2.2) Lipase (22-51) U/L Urine Color Urine Clarity (CLEAR) Urine pH (5.0-7.5) PH Ur Specific [place] (1.002-1.030) Urine Protein (NEGATIVE) mg/dL Urine Glucose (UA) (NEGATIVE) mg/dL Urine Ketones (NEGATIVE) mg/dL Urine Occult Blood (NEGATIVE) Urine Nitrite (NEGATIVE) Urine Bilirubin (NEGATIVE) Urine Urobilinogen (NORMAL) E.U./dL Ur Leukocyte Esterase (NEGATIVE) Urine RBC (0-5) /HPF Urine WBC (0-5) /HPF Ur Squamous Epith Cells (<= Few) Urine Bacteria (None Seen) /HPF Urine Mucus Ur Microscopic Review Urine Culture Comments Nasal Screen MRSA (PCR) (NEGATIVE) 02/19/19 02/19/19 02/19/19 Range/Units 21:15 18:09 17:38 WBC (4.8-10.8) x10^3/uL RBC (4.20-5.40) 10^6/uL Hgb (12.0-16.0) g/dL Hct (37.0-47.0) % MCV (81.0-99.0) fL MCH (27.0-31.0) pg MCHC (32.0-36.0) g/dL RDW (12.0-15.0) % Plt Count (130-450) 10^3/uL MPV (7.9-10.8) fL Neut # (Auto) (1.5-6.6) 10^3/uL Lymph # (Auto) (1.5-3.5) 10^3/uL [place] # (Auto) (0.0-1.0) 10^3/uL Eos # (Auto) (0.0-0.7) 10^3/uL Baso # (Auto) (0.0-0.1) 10^3/uL Absolute Nucleated RBC x10^3/uL Band Neuts % (Manual) Abnorm Lymph % (Manual) Nucleated RBC % /100WBC Neutrophils # (Manual) Lymphocytes # (Manual) Monocytes # (Manual) Eosinophils # (Manual) Basophils # (Manual) Differential Comment Manual Slide Review Platelet Estimate (NORMAL) Platelet Morphology (NORMAL) RBC Morph Micro Appear (NORMAL) Bld Gas Analysis Time Sample Site ABG pH (7.35-7.45) ABG pCO2 (34-45) mmHg ABG pO2 (80-100) mmHg ABG HCO3 (22.0-26.0) mmol/L ABG Total CO2 (21.0-29.0) MMOL/L ABG O2 Saturation (94-98) % ABG Base Excess (-2.0-3.0) mmol/L Hilton Test Respiration Rate b/min O2 Delivery Device Vent Mode FiO2 Tidal Volume mL PEEP cmH2O Pressure Support Vent cmH2O Sodium (135-145) mmol/L Potassium (3.5-5.0) mmol/L Chloride (101-111) mmol/L Carbon Dioxide (21-32) mmol/L Anion Gap (6-13) BUN (6-20) mg/dL Creatinine (0.4-1.0) mg/dL Estimated GFR (MDRD) (>89) Glucose (70-100) mg/dL POC Whole Bld Glucose 144 H (70 - 100) mg/dL Lactic Acid 2.3 H (0.5-2.2) mmol/L Calcium (8.5-10.3) mg/dL Phosphorus (2.5-4.6) mg/dL Magnesium (1.7-2.8) mg/dL Total Bilirubin (0.2-1.0) mg/dL AST (10-42) IU/L ALT (10-60) IU/L Alkaline Phosphatase (42-121) IU/L Total Protein (6.7-8.2) g/dL Albumin (3.2-5.5) g/dL Globulin (2.1-4.2) g/dL Albumin/Globulin Ratio (1.0-2.2) Lipase (22-51) U/L Urine Color Urine Clarity (CLEAR) Urine pH (5.0-7.5) PH Ur Specific [place] (1.002-1.030) Urine Protein (NEGATIVE) mg/dL Urine Glucose (UA) (NEGATIVE) mg/dL Urine Ketones (NEGATIVE) mg/dL Urine Occult Blood (NEGATIVE) Urine Nitrite (NEGATIVE) Urine Bilirubin (NEGATIVE) Urine Urobilinogen (NORMAL) E.U./dL Ur Leukocyte Esterase (NEGATIVE) Urine RBC (0-5) /HPF Urine WBC (0-5) /HPF Ur Squamous Epith Cells (<= Few) Urine Bacteria (None Seen) /HPF Urine Mucus Ur Microscopic Review Urine Culture Comments Nasal Screen MRSA (PCR) NEGATIVE (NEGATIVE) 02/19/19 02/19/19 02/19/19 Range/Units 16:00 16:00 16:00 WBC 23.9 H (4.8-10.8) x10^3/uL RBC 4.90 (4.20-5.40) 10^6/uL Hgb 14.9 (12.0-16.0) g/dL Hct 44.0 (37.0-47.0) % MCV 89.8 (81.0-99.0) fL MCH 30.4 (27.0-31.0) pg MCHC 33.9 (32.0-36.0) g/dL RDW 12.2 (12.0-15.0) % Plt Count 268 (130-450) 10^3/uL MPV 9.6 (7.9-10.8) fL Neut # (Auto) 20.9 H (1.5-6.6) 10^3/uL Lymph # (Auto) 1.0 L (1.5-3.5) 10^3/uL [place] # (Auto) 1.6 H (0.0-1.0) 10^3/uL Eos # (Auto) 0.0 (0.0-0.7) 10^3/uL Baso # (Auto) 0.1 (0.0-0.1) 10^3/uL Absolute Nucleated RBC 0.00 x10^3/uL Band Neuts % (Manual) Not Reportable Abnorm Lymph % (Manual) Not Reportable Nucleated RBC % 0.0 /100WBC Neutrophils # (Manual) Not Reportable Lymphocytes # (Manual) Not Reportable Monocytes # (Manual) Not Reportable Eosinophils # (Manual) Not Reportable Basophils # (Manual) Not Reportable Differential Comment MANUAL=AUTO DIFF Manual Slide Review Indicated Platelet Estimate NORMAL (130-450,000) (NORMAL) Platelet Morphology NORMAL APPEARANCE (NORMAL) RBC Morph Micro Appear NORMAL APPEARANCE (NORMAL) Bld Gas Analysis Time Sample Site ABG pH (7.35-7.45) ABG pCO2 (34-45) mmHg ABG pO2 (80-100) mmHg ABG HCO3 (22.0-26.0) mmol/L ABG Total CO2 (21.0-29.0) MMOL/L ABG O2 Saturation (94-98) % ABG Base Excess (-2.0-3.0) mmol/L Hilton Test Respiration Rate b/min O2 Delivery Device Vent Mode FiO2 Tidal Volume mL PEEP cmH2O Pressure Support Vent cmH2O Sodium 138 (135-145) mmol/L Potassium 3.7 (3.5-5.0) mmol/L Chloride 100 L (101-111) mmol/L Carbon Dioxide 25 (21-32) mmol/L Anion Gap 13.0 (6-13) BUN 15 (6-20) mg/dL Creatinine 0.8 (0.4-1.0) mg/dL Estimated GFR (MDRD) 72 L (>89) Glucose 155 H (70-100) mg/dL POC Whole Bld Glucose (70 - 100) mg/dL Lactic Acid (0.5-2.2) mmol/L Calcium 9.7 (8.5-10.3) mg/dL Phosphorus (2.5-4.6) mg/dL Magnesium (1.7-2.8) mg/dL Total Bilirubin 1.5 H (0.2-1.0) mg/dL AST 16 (10-42) IU/L ALT 16 (10-60) IU/L Alkaline Phosphatase 82 (42-121) IU/L Total Protein 7.5 (6.7-8.2) g/dL Albumin 4.6 (3.2-5.5) g/dL Globulin 2.9 (2.1-4.2) g/dL Albumin/Globulin Ratio 1.6 (1.0-2.2) Lipase 23 (22-51) U/L Urine Color YELLOW Urine Clarity CLOUDY (CLEAR) Urine pH 7.0 (5.0-7.5) PH Ur Specific [place] 1.020 (1.002-1.030) Urine Protein TRACE (NEGATIVE) mg/dL Urine Glucose (UA) NEGATIVE (NEGATIVE) mg/dL Urine Ketones 15 H (NEGATIVE) mg/dL Urine Occult Blood SMALL H (NEGATIVE) Urine Nitrite POSITIVE H (NEGATIVE) Urine Bilirubin NEGATIVE (NEGATIVE) Urine Urobilinogen 0.2 (NORMAL) (NORMAL) E.U./dL Ur Leukocyte Esterase SMALL H (NEGATIVE) Urine RBC 0-5 (0-5) /HPF Urine WBC 6-10 H (0-5) /HPF Ur Squamous Epith Cells MOD Squamous H (<= Few) Urine Bacteria Moderate H (None Seen) /HPF Urine Mucus Few Strands Ur Microscopic Review INDICATED Urine Culture Comments NOT INDICATED Nasal Screen MRSA (PCR) (NEGATIVE) Sepsis Event Note (H) - Evaluation Current Stage of Sepsis: Sepsis Possible source of Sepsis: positive: GI tract/intra-abdominal Confirmed Source and Organism (if known) of Sepsis: gram negative robert - Sepsis Criteria Sepsis Criteria: Recorded Temperature greater than 38.3C or Less than 36C, Respiratory: Increasing oxygen requirements, WBC count greater than 10% bands, SBP drop more than 40mHg, SBP less than 90 mmHg Assessment/Plan - Problem List (1) Severe sepsis with acute organ dysfunction due to Gram negative bacteria Impression: her organ dysfunction is respiratory failure and AMANDO. She is mentally very lucid and appropriate. Yesterday she had encephalopathy. The vent is making her uncomfortable but she denies cp. Her urinalysis was positive for UTI yesterday. Blood cultures are GNR in both set. Baccteremia will require a total of 10 days of abx. Plan: at this time, no other source, except for UA, identified to cause her septic shock to answer surgery question. will recheck EKG and troponin for expanded workup. If these are negative, we do don't suspect other causes than UTI and appendicitis Day #2 abx. Currently on imepenem per surgery change Day #1 after one day of Cefotetan Continue pressors per surgery orders Make sure 10 days of abx starting today, so until stop on 03/01. will sign off case once EKG and troponin are back. (2) Acute respiratory failure with hypoxia Impression: from sepsis and metabolic acidosis seen on ABG. Will maintain current vent support. Anesthesiologist, Doris, has warned that we are not to extubated until anesthesia support is at bedside. Neck and chin anatomy is difficult to manage and they want to be there once we do extubate. curent still with metabolic acidosis and ongoing O2 requirement. will add some sedation since she is so alert and is starting to become uncomfortable with the tube. started and stopped IV bicarb. (3) Appendicitis Impression: POD #1. General surgery is admitting service and we are consult. will follow as needed to answer questions asked. Qualifiers: Appendicitis type: acute appendicitis Acute appendicitis type: with localized peritonitis Appendicitis gangrene presence: without gangrene Appendicitis perforation presence: without perforation Appendicitis abscess presence: without abscess Qualified Code(s): K35.30 - Acute appendicitis with localized peritonitis, without perforation or gangrene (4) Pericardial mass Impression: I mentioned this to son and patient. at this time our focus is her infection and shock response. once that has passed we can discuss further workup needed once she is out of the hospital. (5) AMANDO (acute kidney injury) Impression: most likely from prerenal azotemia from hypotension. was 0.8>1.1 Plan: avoid nephrotoxic agents monitor we are working on getting BP up with pressors and fluids. (6) Hypokalemia Impression: ICU electrolyte protocol.
[2019-02-20] MEDS ORDERED: SODIUM CHLORIDE 0.9% IV SCH (12:00)
[2019-02-20] MEDS ORDERED: PROPOFOL 1000 MG/100 ML 100 ML IV SCH (12:00)
[2019-02-20] MEDS ORDERED: PHENYLEPHRINE IV SCH (12:00)
--- NOTE | 2019-02-20 12:45 | PROVIDER PROGRESS NOTE ---
Subjective - General Admit Date: 02/19/19 Procedure Date: 02/19/19 Post Op Days: 1 Procedure Performed: Laparoscopic appendectomy - Review of Systems Wound/Incisions: positive: Dressing dry and intact General: positive: No symptoms, Other (Note that the patient is completely cogent and responding appropriately while intubated. Follows every request/command.) HEENT: positive: No symptoms Pulmonary: positive: Other (Intubated.) Cardiovascular: positive: No symptoms Gastrointestinal: positive: Abdominal pain Genitourinary: positive: Other ([place] in place.) Musculoskeletal: positive: No symptoms Skin: positive: No symptoms All Other Systems: positive: Other (Unable to obtain ROS as patient is intubated) Objective - Patient Data Reviewed Vital Signs: Yes Vital Signs: Vital Signs x48h Temp Pulse Pulse Resp BP BP Pulse Ox 02/20/19 12:00 36.1 C L 121 H 22 86/55 L 79/60 L 96 02/20/19 11:05 112 H 02/20/19 11:00 117 H 24 80/57 L 94 02/20/19 10:09 114 H 02/20/19 10:00 111 H 18 81/60 L 92 02/20/19 09:00 140 H 40 H 86/57 L 93 02/20/19 08:46 105 H 02/20/19 08:28 108 H 02/20/19 08:00 37.2 C 108 H 28 H 80/66 L 81/67 L 96 02/20/19 07:00 107 H 27 H 122/70 95 02/20/19 06:42 92 02/20/19 06:00 100 21 99/65 83/65 L 98 02/20/19 05:00 98 20 95/63 81/63 L 97 02/20/19 04:53 96 Weight: Weight 02/18/19 02/19/19 02/20/19 23:59 23:59 23:59 Weight (kg) 80.2 kg Intake & Output: Intake and Output Totals x24h 02/18/19 02/19/19 02/20/19 23:59 23:59 23:59 Intake Total 2898.438 7273.555 Output Total 350 715 Balance 2548.438 6558.555 - Lab Results Lab Results: 02/20/19 04:15 02/20/19 04:15 Other Lab Results: Lab Results x24hrs 02/20/19 02/20/19 02/20/19 Range/Units 09:40 07:50 05:15 WBC (4.8-10.8) x10^3/uL RBC (4.20-5.40) 10^6/uL Hgb (12.0-16.0) g/dL Hct (37.0-47.0) % MCV (81.0-99.0) fL MCH (27.0-31.0) pg MCHC (32.0-36.0) g/dL RDW (12.0-15.0) % Plt Count (130-450) 10^3/uL MPV (7.9-10.8) fL Neut # (Auto) (1.5-6.6) 10^3/uL Lymph # (Auto) (1.5-3.5) 10^3/uL [place] # (Auto) (0.0-1.0) 10^3/uL Eos # (Auto) (0.0-0.7) 10^3/uL Baso # (Auto) (0.0-0.1) 10^3/uL Absolute Nucleated RBC x10^3/uL Band Neuts % (Manual) Abnorm Lymph % (Manual) Nucleated RBC % /100WBC Neutrophils # (Manual) Lymphocytes # (Manual) Monocytes # (Manual) Eosinophils # (Manual) Basophils # (Manual) Differential Comment Manual Slide Review Platelet Estimate (NORMAL) Platelet Morphology (NORMAL) RBC Morph Micro Appear (NORMAL) Bld Gas Analysis Time [id number] Sample Site A-LINE ABG pH 7.22 L 7.38 (7.35-7.45) ABG pCO2 36 23 L* (34-45) mmHg ABG pO2 69 L 73 L (80-100) mmHg ABG HCO3 14.1 L 13.4 L (22.0-26.0) mmol/L ABG Total CO2 15.2 L 14.1 L (21.0-29.0) MMOL/L ABG O2 Saturation 90 L 95 (94-98) % ABG Base Excess -12.7 L -9.9 L (-2.0-3.0) mmol/L Hilton Test NOT APPLICABLE NOT APPLICABLE Respiration Rate 20 b/min O2 Delivery Device VENTILATOR Vent Mode SIMV FiO2 50.00 Tidal Volume 550 mL PEEP 5 cmH2O Pressure Support Vent 15 cmH2O Sodium (135-145) mmol/L Potassium (3.5-5.0) mmol/L Chloride (101-111) mmol/L Carbon Dioxide (21-32) mmol/L Anion Gap (6-13) BUN (6-20) mg/dL Creatinine (0.4-1.0) mg/dL Estimated GFR (MDRD) (>89) Glucose (70-100) mg/dL POC Whole Bld Glucose (70 - 100) mg/dL Lactic Acid 3.6 H* (0.5-2.2) mmol/L Calcium (8.5-10.3) mg/dL Phosphorus (2.5-4.6) mg/dL Magnesium (1.7-2.8) mg/dL Total Bilirubin (0.2-1.0) mg/dL AST (10-42) IU/L ALT (10-60) IU/L Alkaline Phosphatase (42-121) IU/L Total Protein (6.7-8.2) g/dL Albumin (3.2-5.5) g/dL Globulin (2.1-4.2) g/dL Albumin/Globulin Ratio (1.0-2.2) Lipase (22-51) U/L Urine Color Urine Clarity (CLEAR) Urine pH (5.0-7.5) PH Ur Specific [place] (1.002-1.030) Urine Protein (NEGATIVE) mg/dL Urine Glucose (UA) (NEGATIVE) mg/dL Urine Ketones (NEGATIVE) mg/dL Urine Occult Blood (NEGATIVE) Urine Nitrite (NEGATIVE) Urine Bilirubin (NEGATIVE) Urine Urobilinogen (NORMAL) E.U./dL Ur Leukocyte Esterase (NEGATIVE) Urine RBC (0-5) /HPF Urine WBC (0-5) /HPF Ur Squamous Epith Cells (<= Few) Urine Bacteria (None Seen) /HPF Urine Mucus Ur Microscopic Review Urine Culture Comments Nasal Screen MRSA (PCR) (NEGATIVE) 02/20/19 02/20/19 02/20/19 Range/Units 04:15 04:15 04:15 WBC 33.1 H (4.8-10.8) x10^3/uL RBC 3.83 L (4.20-5.40) 10^6/uL Hgb 11.6 L (12.0-16.0) g/dL Hct 35.0 L (37.0-47.0) % MCV 91.4 (81.0-99.0) fL MCH 30.3 (27.0-31.0) pg MCHC 33.1 (32.0-36.0) g/dL RDW 12.6 (12.0-15.0) % Plt Count 212 (130-450) 10^3/uL MPV 10.1 (7.9-10.8) fL Neut # (Auto) 30.5 H (1.5-6.6) 10^3/uL Lymph # (Auto) 0.6 L (1.5-3.5) 10^3/uL [place] # (Auto) 0.9 (0.0-1.0) 10^3/uL Eos # (Auto) 0.0 (0.0-0.7) 10^3/uL Baso # (Auto) 0.1 (0.0-0.1) 10^3/uL Absolute Nucleated RBC 0.00 x10^3/uL Band Neuts % (Manual) Abnorm Lymph % (Manual) Nucleated RBC % 0.0 /100WBC Neutrophils # (Manual) Lymphocytes # (Manual) Monocytes # (Manual) Eosinophils # (Manual) Basophils # (Manual) Differential Comment Manual Slide Review Indicated Platelet Estimate NORMAL (130-450,000) (NORMAL) Platelet Morphology NORMAL APPEARANCE (NORMAL) RBC Morph Micro Appear NORMAL APPEARANCE (NORMAL) Bld Gas Analysis Time Sample Site ABG pH (7.35-7.45) ABG pCO2 (34-45) mmHg ABG pO2 (80-100) mmHg ABG HCO3 (22.0-26.0) mmol/L ABG Total CO2 (21.0-29.0) MMOL/L ABG O2 Saturation (94-98) % ABG Base Excess (-2.0-3.0) mmol/L Hilton Test Respiration Rate b/min O2 Delivery Device Vent Mode FiO2 Tidal Volume mL PEEP cmH2O Pressure Support Vent cmH2O Sodium 134 L (135-145) mmol/L Potassium 2.9 L (3.5-5.0) mmol/L Chloride 108 (101-111) mmol/L Carbon Dioxide 16 L (21-32) mmol/L Anion Gap 10.0 (6-13) BUN 16 (6-20) mg/dL Creatinine 1.1 H (0.4-1.0) mg/dL Estimated GFR (MDRD) 50 L (>89) Glucose 233 H (70-100) mg/dL POC Whole Bld Glucose (70 - 100) mg/dL Lactic Acid 3.6 H* (0.5-2.2) mmol/L Calcium 7.0 L (8.5-10.3) mg/dL Phosphorus 3.2 (2.5-4.6) mg/dL Magnesium 1.8 (1.7-2.8) mg/dL Total Bilirubin 1.1 H (0.2-1.0) mg/dL AST 29 (10-42) IU/L ALT 17 (10-60) IU/L Alkaline Phosphatase 62 (42-121) IU/L Total Protein 4.4 L (6.7-8.2) g/dL Albumin 2.4 L (3.2-5.5) g/dL Globulin 2.0 L (2.1-4.2) g/dL Albumin/Globulin Ratio 1.2 (1.0-2.2) Lipase (22-51) U/L Urine Color Urine Clarity (CLEAR) Urine pH (5.0-7.5) PH Ur Specific [place] (1.002-1.030) Urine Protein (NEGATIVE) mg/dL Urine Glucose (UA) (NEGATIVE) mg/dL Urine Ketones (NEGATIVE) mg/dL Urine Occult Blood (NEGATIVE) Urine Nitrite (NEGATIVE) Urine Bilirubin (NEGATIVE) Urine Urobilinogen (NORMAL) E.U./dL Ur Leukocyte Esterase (NEGATIVE) Urine RBC (0-5) /HPF Urine WBC (0-5) /HPF Ur Squamous Epith Cells (<= Few) Urine Bacteria (None Seen) /HPF Urine Mucus Ur Microscopic Review Urine Culture Comments Nasal Screen MRSA (PCR) (NEGATIVE) 02/19/19 02/19/19 02/19/19 Range/Units 23:55 21:39 21:39 WBC (4.8-10.8) x10^3/uL RBC (4.20-5.40) 10^6/uL Hgb (12.0-16.0) g/dL Hct (37.0-47.0) % MCV (81.0-99.0) fL MCH (27.0-31.0) pg MCHC (32.0-36.0) g/dL RDW (12.0-15.0) % Plt Count (130-450) 10^3/uL MPV (7.9-10.8) fL Neut # (Auto) (1.5-6.6) 10^3/uL Lymph # (Auto) (1.5-3.5) 10^3/uL [place] # (Auto) (0.0-1.0) 10^3/uL Eos # (Auto) (0.0-0.7) 10^3/uL Baso # (Auto) (0.0-0.1) 10^3/uL Absolute Nucleated RBC x10^3/uL Band Neuts % (Manual) Abnorm Lymph % (Manual) Nucleated RBC % /100WBC Neutrophils # (Manual) Lymphocytes # (Manual) Monocytes # (Manual) Eosinophils # (Manual) Basophils # (Manual) Differential Comment Manual Slide Review Platelet Estimate (NORMAL) Platelet Morphology (NORMAL) RBC Morph Micro Appear (NORMAL) Bld Gas Analysis Time Sample Site ABG pH (7.35-7.45) ABG pCO2 (34-45) mmHg ABG pO2 (80-100) mmHg ABG HCO3 (22.0-26.0) mmol/L ABG Total CO2 (21.0-29.0) MMOL/L ABG O2 Saturation (94-98) % ABG Base Excess (-2.0-3.0) mmol/L Hilton Test Respiration Rate b/min O2 Delivery Device Vent Mode FiO2 Tidal Volume mL PEEP cmH2O Pressure Support Vent cmH2O Sodium (135-145) mmol/L Potassium (3.5-5.0) mmol/L Chloride (101-111) mmol/L Carbon Dioxide (21-32) mmol/L Anion Gap (6-13) BUN (6-20) mg/dL Creatinine (0.4-1.0) mg/dL Estimated GFR (MDRD) (>89) Glucose (70-100) mg/dL POC Whole Bld Glucose (70 - 100) mg/dL Lactic Acid 5.6 H* 4.5 H* (0.5-2.2) mmol/L Calcium (8.5-10.3) mg/dL Phosphorus 2.2 L (2.5-4.6) mg/dL Magnesium 1.2 L (1.7-2.8) mg/dL Total Bilirubin (0.2-1.0) mg/dL AST (10-42) IU/L ALT (10-60) IU/L Alkaline Phosphatase (42-121) IU/L Total Protein (6.7-8.2) g/dL Albumin (3.2-5.5) g/dL Globulin (2.1-4.2) g/dL Albumin/Globulin Ratio (1.0-2.2) Lipase (22-51) U/L Urine Color Urine Clarity (CLEAR) Urine pH (5.0-7.5) PH Ur Specific [place] (1.002-1.030) Urine Protein (NEGATIVE) mg/dL Urine Glucose (UA) (NEGATIVE) mg/dL Urine Ketones (NEGATIVE) mg/dL Urine Occult Blood (NEGATIVE) Urine Nitrite (NEGATIVE) Urine Bilirubin (NEGATIVE) Urine Urobilinogen (NORMAL) E.U./dL Ur Leukocyte Esterase (NEGATIVE) Urine RBC (0-5) /HPF Urine WBC (0-5) /HPF Ur Squamous Epith Cells (<= Few) Urine Bacteria (None Seen) /HPF Urine Mucus Ur Microscopic Review Urine Culture Comments Nasal Screen MRSA (PCR) (NEGATIVE) 02/19/19 02/19/19 02/19/19 Range/Units 21:15 18:09 17:38 WBC (4.8-10.8) x10^3/uL RBC (4.20-5.40) 10^6/uL Hgb (12.0-16.0) g/dL Hct (37.0-47.0) % MCV (81.0-99.0) fL MCH (27.0-31.0) pg MCHC (32.0-36.0) g/dL RDW (12.0-15.0) % Plt Count (130-450) 10^3/uL MPV (7.9-10.8) fL Neut # (Auto) (1.5-6.6) 10^3/uL Lymph # (Auto) (1.5-3.5) 10^3/uL [place] # (Auto) (0.0-1.0) 10^3/uL Eos # (Auto) (0.0-0.7) 10^3/uL Baso # (Auto) (0.0-0.1) 10^3/uL Absolute Nucleated RBC x10^3/uL Band Neuts % (Manual) Abnorm Lymph % (Manual) Nucleated RBC % /100WBC Neutrophils # (Manual) Lymphocytes # (Manual) Monocytes # (Manual) Eosinophils # (Manual) Basophils # (Manual) Differential Comment Manual Slide Review Platelet Estimate (NORMAL) Platelet Morphology (NORMAL) RBC Morph Micro Appear (NORMAL) Bld Gas Analysis Time Sample Site ABG pH (7.35-7.45) ABG pCO2 (34-45) mmHg ABG pO2 (80-100) mmHg ABG HCO3 (22.0-26.0) mmol/L ABG Total CO2 (21.0-29.0) MMOL/L ABG O2 Saturation (94-98) % ABG Base Excess (-2.0-3.0) mmol/L Hilton Test Respiration Rate b/min O2 Delivery Device Vent Mode FiO2 Tidal Volume mL PEEP cmH2O Pressure Support Vent cmH2O Sodium (135-145) mmol/L Potassium (3.5-5.0) mmol/L Chloride (101-111) mmol/L Carbon Dioxide (21-32) mmol/L Anion Gap (6-13) BUN (6-20) mg/dL Creatinine (0.4-1.0) mg/dL Estimated GFR (MDRD) (>89) Glucose (70-100) mg/dL POC Whole Bld Glucose 144 H (70 - 100) mg/dL Lactic Acid 2.3 H (0.5-2.2) mmol/L Calcium (8.5-10.3) mg/dL Phosphorus (2.5-4.6) mg/dL Magnesium (1.7-2.8) mg/dL Total Bilirubin (0.2-1.0) mg/dL AST (10-42) IU/L ALT (10-60) IU/L Alkaline Phosphatase (42-121) IU/L Total Protein (6.7-8.2) g/dL Albumin (3.2-5.5) g/dL Globulin (2.1-4.2) g/dL Albumin/Globulin Ratio (1.0-2.2) Lipase (22-51) U/L Urine Color Urine Clarity (CLEAR) Urine pH (5.0-7.5) PH Ur Specific [place] (1.002-1.030) Urine Protein (NEGATIVE) mg/dL Urine Glucose (UA) (NEGATIVE) mg/dL Urine Ketones (NEGATIVE) mg/dL Urine Occult Blood (NEGATIVE) Urine Nitrite (NEGATIVE) Urine Bilirubin (NEGATIVE) Urine Urobilinogen (NORMAL) E.U./dL Ur Leukocyte Esterase (NEGATIVE) Urine RBC (0-5) /HPF Urine WBC (0-5) /HPF Ur Squamous Epith Cells (<= Few) Urine Bacteria (None Seen) /HPF Urine Mucus Ur Microscopic Review Urine Culture Comments Nasal Screen MRSA (PCR) NEGATIVE (NEGATIVE) 02/19/19 02/19/19 02/19/19 Range/Units 16:00 16:00 16:00 WBC 23.9 H (4.8-10.8) x10^3/uL RBC 4.90 (4.20-5.40) 10^6/uL Hgb 14.9 (12.0-16.0) g/dL Hct 44.0 (37.0-47.0) % MCV 89.8 (81.0-99.0) fL MCH 30.4 (27.0-31.0) pg MCHC 33.9 (32.0-36.0) g/dL RDW 12.2 (12.0-15.0) % Plt Count 268 (130-450) 10^3/uL MPV 9.6 (7.9-10.8) fL Neut # (Auto) 20.9 H (1.5-6.6) 10^3/uL Lymph # (Auto) 1.0 L (1.5-3.5) 10^3/uL [place] # (Auto) 1.6 H (0.0-1.0) 10^3/uL Eos # (Auto) 0.0 (0.0-0.7) 10^3/uL Baso # (Auto) 0.1 (0.0-0.1) 10^3/uL Absolute Nucleated RBC 0.00 x10^3/uL Band Neuts % (Manual) Not Reportable Abnorm Lymph % (Manual) Not Reportable Nucleated RBC % 0.0 /100WBC Neutrophils # (Manual) Not Reportable Lymphocytes # (Manual) Not Reportable Monocytes # (Manual) Not Reportable Eosinophils # (Manual) Not Reportable Basophils # (Manual) Not Reportable Differential Comment MANUAL=AUTO DIFF Manual Slide Review Indicated Platelet Estimate NORMAL (130-450,000) (NORMAL) Platelet Morphology NORMAL APPEARANCE (NORMAL) RBC Morph Micro Appear NORMAL APPEARANCE (NORMAL) Bld Gas Analysis Time Sample Site ABG pH (7.35-7.45) ABG pCO2 (34-45) mmHg ABG pO2 (80-100) mmHg ABG HCO3 (22.0-26.0) mmol/L ABG Total CO2 (21.0-29.0) MMOL/L ABG O2 Saturation (94-98) % ABG Base Excess (-2.0-3.0) mmol/L Hilton Test Respiration Rate b/min O2 Delivery Device Vent Mode FiO2 Tidal Volume mL PEEP cmH2O Pressure Support Vent cmH2O Sodium 138 (135-145) mmol/L Potassium 3.7 (3.5-5.0) mmol/L Chloride 100 L (101-111) mmol/L Carbon Dioxide 25 (21-32) mmol/L Anion Gap 13.0 (6-13) BUN 15 (6-20) mg/dL Creatinine 0.8 (0.4-1.0) mg/dL Estimated GFR (MDRD) 72 L (>89) Glucose 155 H (70-100) mg/dL POC Whole Bld Glucose (70 - 100) mg/dL Lactic Acid (0.5-2.2) mmol/L Calcium 9.7 (8.5-10.3) mg/dL Phosphorus (2.5-4.6) mg/dL Magnesium (1.7-2.8) mg/dL Total Bilirubin 1.5 H (0.2-1.0) mg/dL AST 16 (10-42) IU/L ALT 16 (10-60) IU/L Alkaline Phosphatase 82 (42-121) IU/L Total Protein 7.5 (6.7-8.2) g/dL Albumin 4.6 (3.2-5.5) g/dL Globulin 2.9 (2.1-4.2) g/dL Albumin/Globulin Ratio 1.6 (1.0-2.2) Lipase 23 (22-51) U/L Urine Color YELLOW Urine Clarity CLOUDY (CLEAR) Urine pH 7.0 (5.0-7.5) PH Ur Specific [place] 1.020 (1.002-1.030) Urine Protein TRACE (NEGATIVE) mg/dL Urine Glucose (UA) NEGATIVE (NEGATIVE) mg/dL Urine Ketones 15 H (NEGATIVE) mg/dL Urine Occult Blood SMALL H (NEGATIVE) Urine Nitrite POSITIVE H (NEGATIVE) Urine Bilirubin NEGATIVE (NEGATIVE) Urine Urobilinogen 0.2 (NORMAL) (NORMAL) E.U./dL Ur Leukocyte Esterase SMALL H (NEGATIVE) Urine RBC 0-5 (0-5) /HPF Urine WBC 6-10 H (0-5) /HPF Ur Squamous Epith Cells MOD Squamous H (<= Few) Urine Bacteria Moderate H (None Seen) /HPF Urine Mucus Few Strands Ur Microscopic Review INDICATED Urine Culture Comments NOT INDICATED Nasal Screen MRSA (PCR) (NEGATIVE) - Current Medications Current Medications: Current Medications Generic Name Dose Route Start Last Admin Trade Name Freq PRN Reason Stop Dose Admin Hydrocortisone Sodium Succinate 100 mg 02/19/19 23:45 02/20/19 05:51 Solu-Cortef IVP 100 mg TID PAIGE Administration Hydromorphone HCl 1 mg 02/19/19 21:26 02/20/19 09:38 Dilaudid Inj Syringe IVP 1 mg Q1H PRN Administration PAIN Acetaminophen 100 mls @ 400 mls/hr 02/19/19 22:00 02/20/19 10:21 Ofirmev IV Infused Q6H PAIGE Infusion Norepinephrine Bitartrate 8 mg 250 mls @ 0 mls/hr 02/19/19 22:00 02/20/19 10:51 / Dextrose IV 30 mcg/min .Q0M PAIGE 56.25 mls/hr Administration Protocol Vasopressin 20 unit/ Dextrose 100 mls @ 6 mls/hr 02/20/19 02:00 02/20/19 08:45 IV 0 unit/min .[id number] PAIGE 0 mls/hr Titration Protocol 0.02 UNIT/MIN Sodium Bicarbonate 100 meq/ 1,100 mls @ 100 mls/hr 02/20/19 07:00 02/20/19 06:49 Dextrose IV 100 mls/hr .Q11H PAIGE Administration Imipenem/Cilastatin Sodium 500 100 mls @ 200 mls/hr 02/20/19 09:30 02/20/19 10:00 mg/ Sodium Chloride IV Infused Q6HR PAIGE Infusion Phenylephrine HCl 40 mg/ 504 mls @ 0 mls/hr 02/20/19 12:00 02/20/19 12:15 Sodium Chloride IV 100 mcg/min .Q0M PAIGE 75.6 mls/hr Titration Protocol Propofol 100 mls @ 4.812 mls/hr 02/20/19 12:00 02/20/19 12:25 Diprivan IV 5 mcg/kg/min .[id number] PAIGE 2.406 mls/hr Titration Protocol 10 MCG/KG/MIN Ondansetron HCl 4 mg 02/19/19 21:08 02/20/19 09:11 Zofran Inj IVP 4 mg Q6H PRN Administration Nausea / Vomiting Pantoprazole Sodium 40 mg 02/20/19 07:00 02/20/19 06:29 Protonix IVP 40 mg QDAC PAIGE Administration Sodium Chloride 10 ml 02/20/19 01:00 02/20/19 09:38 Normal Saline Flush 0.9% IVP 10 ml 0100,0900,1700 PAIGE Administration - Physical Exam Wound/Incisions: positive: Dressing dry and intact, No drainage General Appearance: positive: No acute distress, Other (Remarkably compliant while intubated.) Eyes Bilateral: positive: No lid inflammation, Conjunctivae nml, No scleral icterus ENT: positive: Dry mucous membranes Neck: positive: Trachea midline Respiratory: positive: Other (Lightly coarse bilaterally.) Cardiovascular: positive: Regular rate & rhythm, Tachycardia Abdomen: positive: Tenderness (RLQ especially with cough.) Skin: positive: Color nml Extremities: positive: Non-tender, Nml appearance Neurologic/Psychiatric: positive: Oriented x3, Motor nml, Sensation nml, Mood/affect nml ABX Reporting Has patient been on IV antibiotics over the past 48 hours?: Yes Impression/Plan - Problem List Problem List: D1 s/p laparoscopic appendectomy for acute suppurative appendicitis with gram negative bacteremia and sepsis 1) FEN Continue aggressive IVF as sepsis causes vasodilation. Await for pressors and antibiotics to help decrease pressor requirements. 2) ID Bacteremia (gram negative both bottles) and sepsis. Switched antibiotic coverage to Imipenem for at least 10 days (due to more aggressive coverage). WBC higher today. Appreciate Hospitalist's input looking for other possible source of infection. Lactic acid is decreasing but clearly not normal yet. 3) [employer] Attempt to wean off pressors - currently on Levophed and Neosynephrine. Urine output is absolutely appropriate. No reason for bicarbonate drip as the patient's pH is > 7.1 and continued bicarbonate infusion in this instance will not improve outcome but will increase CO2 in patient. Mean arterial pressure of > 65 mmHg is our goal. Appreciate Hospitalist's input regarding alternative reasons for hemodynamic instability. 4) Respiratory Patient is awake and likely able to be weaned off but I am concerned with the hemodynamic instability that she may require re-intubation. Will revisit extubation tomorrow. 5) [place] Leave in while patient is hemodynamically unstable. 6) DVT prophylaxis Venodynes in place.
[2019-02-20] MEDS ORDERED: NS W/20 MEQ KCL 1,000 ML IV SCH (14:00)
[2019-02-20] MEDS ORDERED: SODIUM CHLORIDE INHALATION 3 ML NEB ONE (15:37)
[2019-02-20 17:07] VITALS: BP 88/54
--- NOTE | 2019-02-20 17:25 | DISCHARGE SUMMARY ---
"Discharge Summary Admit Date: 02/19/19 Discharge Date: 02/20/19 Discharging Provider: Ada Amin MD Primary Care Provider: Johnie Navarro MD Code Status: Attempt Resuscitation Condition at Discharge: Critical Discharge Disposition: 02 Transfer Acute Care Hosp Discharge Facility Name: [facility] - DIAGNOSES Discharge Diagnoses with Status of Each Condition: 1. severe sepsis with acute organ dysfunction due to gram-negative bacteria 2. Appendicitis 3. Acute respiratory failure with hypoxia 4. Pericardial mass 5. Acute kidney injury 6. Hypokalemia 7. Severe demand ischemia with abnormal troponins 8. Abnormal urinary constituents. - HPI History of Present Illness: This is a 63 year old female with no significant past medical history who presented from home today after complaining of abdominal and chest pain that began yesterday evening. Her son tells me that she felt the pain around 6pm last night and was initially located in her chest. Then the pain became most prominent in the right lower quadrant. The patient had difficulty sleeping last night because of the pain. In the ER, she was found to be febrile, tachycardic, and hypotensive. Labs revealed significant leukocytosis with a left shift. she initially was alert and oriented in the emergency room and then became obtunded with lethargy. CT of the head was done. That was negative. She had a CT of the abdomen/pelvis performed which was concerning for appendicitis without an identifiable abscess. General Surgery was consulted and she went to the OR for laparoscopic appendectomy. It appeared that she suppurative appendicitis with likely perforation. She was hypotensive while in the OR and required Neosynephrine. She was given a total of 4.6L of crystalloid. She could not be extubated postoperatively due to poor tidal volumes and so she was transferred to the ICU for further management and Medicine was consulted to assist with medical and ventilatory management. History - Past Medical History Cardiovascular: reports: High cholesterol Respiratory: reports: None Psych: reports: None Musculoskeletal: reports: Osteoarthritis - CONSULTS | PROCEDURES Procedures: 1. abdomen pelvis CT showing a potentially enhancing solid mass along the right pericardial fat measuring 3.9 x 3.3 cm. Liver, gallbladder, bile ducts, spleen, pancreas, adrenal glands, kidneys normal. Bowel loops demonstrate no obstruction or ileus. There is mild inflammatory changes in the right lower quadrant. A moderately dilated appendix measuring 2 cm with surrounding inflammatory changes is seen consistent with appendicitis. 13 mm appendicolith is seen near the base. Additional smaller appendicolith is seen at the tip. No abscess or free air. Mildly enlarged partly calcified heterogeneous uterus consistent with fibroids. 2. CT of head done for altered mental status showed no acute intracranial abnormality. 3. Chest x-ray after central line shows moderate pulmonary edema. No focal opacities. Well-positioned endotracheal tube. Mild stable cardiomegaly with moderate pulmonary edema. Chest x-ray on postoperative day #1 shows endotracheal tube in stable position, no pneumothorax, hazy diffuse opacities obscuring pulmonary vasculature. 4. EKG on admission showed sinus rhythm, tachycardia, poor R wave progression. EKG done postop day 1 shows sinus tachycardia, diffusely low voltage that was comparable in the same as admitting EKG. Same poor R wave progression. No acute STTwave changes. 5. Blood cultures from admission day with gram neg robert. - HOSPITAL COURSE Hospital Course: She required 3 pressors on postop day #1. By late afternoon she was only on one pressor maintaining systolic of over 90 with good urine output. Acute respiratory failure had improved significantly. She was needing less FiO2. We kept her on a ventilator with an abundance of caution because of neck anatomy. Anesthesia was worried that if we extubated this woman, it would be a difficult reintubation. Her admission creatinine was 0.8. On postop day 1 she was 1.1. We felt that was prerenal azotemia from her shock. Hypokalemia was supplemented IV. Lactic acid was starting to turn around and started at 2.3 in the ER. Peaked at 5.6 the evening of admisson and today is 3.6. Because of such severe hypotension, we investigated other causes of her shock. While she has gram-negative bacteremia in her blood, and a UTI we felt, source of her infection was definitely the suppurative appendicitis. We checked an EKG and she had normal sinus rhythm with no acute ST-T wave changes. Her initial troponin was 161.9. Second troponin was 1495.2. I called for a phone cardio logy consultation from [facility] cardiology. Dr. Berenice Zacarias was concerned about the close to 10 fold rise in her troponins. He was wondering if we could possibly start IV heparin drip and give her an aspirin. I explained that since she was so recently operated on, general surgery might want to wait at least 24 hours before we do that. He then requested an echocardiogram to assess her LV function. Unfortunately we cannot do that on the weekends here. As such Dr. Zacarias recommended transfer to higher level of care. I spoke to Ludwig Anders, drilling fluids specialist radar air traffic controller. Both of these physicians are comfortable taking this patient to medical ICU. At this time we do not anticipate further surgical need other than routine postoperative healing. White cell count on admission was 23.9 and 33.1 on the day of discharge. She was initially started on cefotetan and general surgery changed it to imipenem. The only other abnormality of note during the stay was an isolated pericardial mass noted on the lower cuts of the chest wall of CT abdomen. It is a 3.9 x 3.3 cm mass along the right pericardial fat. I have explained to both mother and sister that I really do not know where this is coming from. But she will need a close follow-up in the outpatient setting. At the time of discharge the patient is transferred on Ofirmev IV every 6 hours scheduled, Solu-Cortef 100 mg IV push 3 times daily, Dilaudid 1 mg IV nightly hours as needed, imipenem every 6 hours IV, levo fed, Protonix 40 mg IV daily, propofol drip. Vasopressin and phenylephrine have been discontinued. She is still on a ventilator. - ALLERGIES Allergies/Adverse Reactions: Allergies Allergy/AdvReac Type Severity Reaction Status Date / Time Penicillins Allergy Hives Verified 02/19/19 15:40 Sulfa (Sulfonamide Allergy Hives Verified 02/19/19 15:40 Antibiotics) - PHYSICAL EXAM AT DISCHARGE General Appearance: positive: Other (asleep on propofol, intubated. This morning, before propofol, awake, alert, communicating very well even tho ET tube in place) Eyes Bilateral: positive: PERRL ENT: positive: Pharynx nml Respiratory: positive: Chest non-tender. negative: Wheezes, Rales, Rhonchi Cardiovascular: positive: Regular rate & rhythm. negative: Systolic murmur, Gallop/S4, Friction rub Peripheral Pulses: positive: 1+ Abdomen: positive: Other (no bowel sounds, laparascopic incisions closed) Skin: positive: Warm, Dry, Pallor Extremities: positive: Non-tender, No pedal edema Neurologic/Psychiatric: positive: Oriented x3 (this morning before propofol), CN's nml (2-12), Motor nml - LABS Result Diagrams: 02/20/19 04:15 02/20/19 04:15 - SEPSIS Current Stage of Sepsis: Sepsis Possible source of Sepsis: GI tract/intra-abdominal Confirmed Source and Organism (if known) of Sepsis: Gram negative robert Sepsis Associated Organ Dysfunction: acute kidney injury Sepsis Criteria: Recorded Temperature greater than 38.3C or Less than 36C, Respiratory: Increasing oxygen requirements, WBC count greater than 10% bands, SBP drop more than 40mHg, SBP less than 90 mmHg"
== END 2019-02-20 18:40 | disposition short-term general hospital (02) | DRG 853 ==
LOC: ED 15:36 → SDS 18:10 → ED 18:39 → ICU 21:08
PROVIDERS: ADMIT Surgery; ATTEND Specialist
PROC: 0WJG4ZZ Inspection of Peritoneal Cavity, Percutaneous Endoscopic Approach (ICD-10-PCS; 2019-02-19)
PROC: 0DTJ0ZZ Resection of Appendix, Open Approach (ICD-10-PCS; principal; 2019-02-19 18:19)
DX: A41.50 Gram-negative sepsis, unspecified (principal); K35.32 Acute appendicitis with perforation, localized peritonitis, and gangrene, without abscess; J96.01 Acute respiratory failure with hypoxia; R65.21 Severe sepsis with septic shock; N17.9 Acute kidney failure, unspecified; N39.0 Urinary tract infection, site not specified; E87.2 Acidosis; R79.89 Other specified abnormal findings of blood chemistry; E87.6 Hypokalemia; R82.90 Unspecified abnormal findings in urine; R93.89 Abnormal findings on diagnostic imaging of other specified body structures; E78.00 Pure hypercholesterolemia, unspecified; M19.90 Unspecified osteoarthritis, unspecified site; Z79.51 Long term (current) use of inhaled steroids
CPT/HCPCS: 36415; 44970; 70450; 74177; 80053; 81001; 82803; 83605; 83690; 83735; 84100; 84484; 85025; 87040; 87077; 87150; 87181; 93005; 94003; 94770; 96365; 99285; 99291; J0131; J1170; J7120; Q9967; 71045; 81003; 87086

== ENCOUNTER 2019-03-03 05:00 | Outpatient (CLI) | payer OTHER ==
[2019-03-03 18:41] LABS: BASOPHILS # (AUTO) 0.1 10^3/uL (0.0-0.1); BASOPHILS % (AUTO) 0.4 %; EOSINOPHILS # (AUTO) 0.2 10^3/uL (0.0-0.7); EOSINOPHILS % (AUTO) 1.3 %; HGB - HEMOGLOBIN 11.2 g/dL (12.0-16.0); LYMPHOCYTES # (AUTO) 1.9 10^3/uL (1.5-3.5); LYMPHOCYTES % (AUTO) 13.2 %; MEAN CORPUSCULAR HEMOGLOBIN 29.5 pg (27.0-31.0); MEAN CORPUSCULAR HGB CONC 32.3 g/dL (32.0-36.0); MEAN CORPUSCULAR VOLUME 91.3 fL (81.0-99.0); MEAN PLATELET VOLUME 9.8 fL (7.9-10.8); MONOCYTES # (AUTO) 0.9 10^3/uL (0.0-1.0); MONOCYTES % (AUTO) 6.2 %; NEUTROPHILS # (AUTO) 11.2 10^3/uL (1.5-6.6); NEUTROPHILS % (AUTO) 76.2 %; PLT - PLATELET COUNT 529 10^3/uL (130-450); WHITE BLOOD COUNT 14.7 x10^3/uL (4.8-10.8)
[2019-03-03 18:47] LABS: ALBUMIN 3.6 g/dL (3.2-5.5); ALBUMIN/GLOBULIN RATIO 1.3 (1.0-2.2); BILIRUBIN,TOTAL 0.9 mg/dL (0.2-1.0); CALCIUM 8.7 mg/dL (8.5-10.3); CREATININE 0.4 mg/dL (0.4-1.0); TOTAL PROTEIN 6.4 g/dL (6.7-8.2)
== END 2019-03-03 23:59 | disposition home or self-care (01) ==
LOC: LAB.R 05:00
PROVIDERS: ATTEND Physician Assistant
DX: J18.9 Pneumonia, unspecified organism (principal)
CPT/HCPCS: 80053; 85025

== ENCOUNTER 2019-03-03 13:51 | Outpatient (CLI) | payer OTHER ==
--- NOTE | 2019-03-03 14:43 | XRAY Report ---
Reason: BRONCHITIS ACUTE WITH MILD BRONCHOSPASM, COUGH Procedure Date: 03/03/2019 Accession Number: [id number] / [id number] Procedure: XR - Chest 2 View X-Ray CPT Code: 14355 FULL RESULT: EXAM: CHEST RADIOGRAPHY. EXAM DATE: 03/03/2019 02:03 PM. CLINICAL HISTORY: Bronchitis acute with mild bronchospasm, cough. COMPARISON: CHEST FOR LINE PLACEMENT 02/19/2019 9:09 PM. TECHNIQUE: 2 views. FINDINGS: Lungs/Pleura: Hypoventilatory chest with mild bilateral basilar consolidation. Lungs are otherwise clear. Small bilateral pleural effusions. There has been interval resolution of previous venous congestion. Mediastinum: Heart and mediastinal contours are unremarkable. Other: There has been interval removal of the endotracheal tube and right IJ CVP. IMPRESSION: 1. Hypoventilatory chest with mild bilateral basal atelectasis. 2. There has been interval resolution of previous vascular congestion. 3. Tiny bilateral pleural effusions. RADIA
== END 2019-03-03 13:52 | disposition home or self-care (01) ==
LOC: DI 13:51
PROVIDERS: ATTEND Physician Assistant
DX: J20.9 Acute bronchitis, unspecified (principal); J98.11 Atelectasis; J90 Pleural effusion, not elsewhere classified
CPT/HCPCS: 71046

== ENCOUNTER 2019-03-26 08:00 | Outpatient (CLI) | payer OTHER ==
--- NOTE | 2019-03-28 22:40 | XRAY Report ---
Reason: PNEUMONIA Procedure Date: 03/26/2019 Accession Number: [id number] / [id number] Procedure: WCP - Chest 2 View X-Ray CPT Code: 48617 FULL RESULT: EXAM: CHEST RADIOGRAPHY EXAM DATE: 03/26/2019 02:21 PM. CLINICAL HISTORY: PNEUMONIA. COMPARISON: CHEST 2 VIEW 03/03/2019 1:53 PM. TECHNIQUE: 2 views. FINDINGS: Lungs/Pleura: Elevated right hemidiaphragm adjacent, improved right base opacification. Tiny right pleural effusion. Left base of aspiration resolved. No pneumothorax. Mediastinum: Heart and mediastinal contours are unremarkable. Other: None. IMPRESSION: Resolution of left base opacification. Persistent, improved right base opacification and tiny right pleural effusion. RADIA
== END 2019-03-26 23:59 | disposition home or self-care (01) ==
LOC: DI.WCP 08:00
PROVIDERS: ATTEND Physician Assistant
DX: J18.9 Pneumonia, unspecified organism (principal); J90 Pleural effusion, not elsewhere classified
CPT/HCPCS: 71046

== ENCOUNTER 2019-04-08 14:28 | Outpatient (CLI) | payer OTHER ==
--- NOTE | 2019-04-09 10:21 | XRAY Report ---
Reason: PNEUMONIA, COUGH Procedure Date: 04/08/2019 Accession Number: [id number] / [id number] Procedure: WCP - Chest 2 View X-Ray CPT Code: 55785 Final Report FULL RESULT: EXAM: CHEST RADIOGRAPHY EXAM DATE: 04/08/2019 02:46 PM. CLINICAL HISTORY: PNEUMONIA, COUGH. COMPARISON: CHEST 2 VIEW 03/26/2019 1:57 PM. TECHNIQUE: 2 views. FINDINGS: Lungs/Pleura: Persistent hazy opacities of the right middle lobe and right base. No new left-sided consolidation. No evidence of pleural effusion or pneumothorax. Mediastinum: Stable heart size and mediastinum. Other: None. IMPRESSION: 1. Hazy opacities of the right middle lobe and right base could reflect persistent pneumonia. RADIA
== END 2019-04-08 23:59 | disposition home or self-care (01) ==
LOC: DI.WCP 14:28
PROVIDERS: ATTEND Family Medicine
DX: J18.9 Pneumonia, unspecified organism (principal)
CPT/HCPCS: 71046

== ENCOUNTER 2019-07-23 09:00 | Outpatient (CLI) | payer OTHER ==
[2019-07-23 13:26] LABS: BASOPHILS # (AUTO) 0.1 10^3/uL (0.0-0.1); BASOPHILS % (AUTO) 0.6 %; EOSINOPHILS # (AUTO) 0.3 10^3/uL (0.0-0.7); EOSINOPHILS % (AUTO) 3.3 %; HGB - HEMOGLOBIN 14.3 g/dL (12.0-16.0); LYMPHOCYTES # (AUTO) 1.5 10^3/uL (1.5-3.5); LYMPHOCYTES % (AUTO) 14.3 %; MEAN CORPUSCULAR HEMOGLOBIN 29.2 pg (27.0-31.0); MEAN CORPUSCULAR VOLUME 88.5 fL (81.0-99.0); MONOCYTES # (AUTO) 0.8 10^3/uL (0.0-1.0); MONOCYTES % (AUTO) 7.7 %; NEUTROPHILS # (AUTO) 7.5 10^3/uL (1.5-6.6); NEUTROPHILS % (AUTO) 73.6 %; PLT - PLATELET COUNT 261 10^3/uL (130-450); RED BLOOD COUNT 4.89 10^6/uL (4.20-5.40); RED CELL DISTRIBUTION WIDTH 12.8 % (12.0-15.0); WHITE BLOOD COUNT 10.1 x10^3/uL (4.8-10.8)
[2019-07-23 13:38] LABS: ALBUMIN 4.3 g/dL (3.2-5.5); ALBUMIN/GLOBULIN RATIO 1.9 (1.0-2.2); BILIRUBIN,TOTAL 1.3 mg/dL (0.2-1.0); CALCIUM 9.1 mg/dL (8.5-10.3); CREATININE 0.6 mg/dL (0.4-1.0); TOTAL PROTEIN 6.6 g/dL (6.7-8.2)
== END 2019-07-23 23:59 | disposition home or self-care (01) ==
LOC: LAB.WCP 09:00
PROVIDERS: ATTEND Physician Assistant
DX: R05 Cough (principal); R53.83 Other fatigue; R19.7 Diarrhea, unspecified
CPT/HCPCS: 36415; 80053; 84443; 85025

== ENCOUNTER 2019-07-23 09:02 | Outpatient (CLI) | payer OTHER ==
--- NOTE | 2019-07-23 15:46 | XRAY Report ---
Reason: COUGH Procedure Date: 07/23/2019 Accession Number: [id number] / [id number] Procedure: WCP - Chest 2 View X-Ray CPT Code: 95512 Final Report FULL RESULT: EXAM: CHEST RADIOGRAPHY, 2 views EXAM DATE: 07/23/2019 09:02 AM. CLINICAL HISTORY: Cough in a 64-year-old female. COMPARISON: CHEST 2 VIEW 04/08/2019 2:26 PM. CHEST 2 VIEW PA/LAT 04/14/2017 3:48 PM. TECHNIQUE: Upright PA and lateral views. FINDINGS: Lungs/Pleura: No focal opacities evident. No pleural effusion. No pneumothorax. Normal volumes. Mediastinum: Heart size normal, without adenopathy or pulmonary vascular congestion. Other: Trachea is midline. Slight dextroconvex curve mid to lower thoracic spine, stable. Osseous structures otherwise unremarkable for age. IMPRESSION: No pneumonia, CHF or other demonstrated cause for cough. RADIA
== END 2019-07-23 23:59 | disposition home or self-care (01) ==
LOC: DI.WCP 09:02
PROVIDERS: ATTEND Physician Assistant
DX: R05 Cough (principal); R53.83 Other fatigue; R19.7 Diarrhea, unspecified
CPT/HCPCS: 36415; 71046; 80053; 84443; 85025

== ENCOUNTER 2019-11-22 15:30 | Outpatient (CLI) | payer OTHER ==
--- NOTE | 2019-11-22 16:34 | XRAY Report ---
Reason: LEFT HAND PAIN Procedure Date: 11/22/2019 Accession Number: [id number] / [id number] Procedure: WCP - Hand 3 View LT CPT Code: Final Report FULL RESULT: PROCEDURE: Hand 3 View LT INDICATIONS: LEFT HAND PAIN TECHNIQUE: 3 views of the hand(s) acquired. COMPARISON: None FINDINGS: Bones: No fractures or dislocations. Osteoarthritic changes are noted throughout left hand and wrist most prominent involving first CMC joint and scaphotrapezial joint. No gross bony erosive changes are seen. No suspicious bony lesions. Soft tissues: No suspicious soft tissue calcifications. IMPRESSION: Osteoarthritic changes throughout left hand and wrist. No acute fracture or dislocation. No gross bony erosive changes. Reviewed by: Neymar Paris MD on 11/22/2019 4:32 PM PDT Approved by: Neymar Paris MD on 11/22/2019 4:32 PM PDT Station ID: [id number]
[2019-11-22 18:08] LABS: BASOPHILS % (AUTO) 0.2 %; EOSINOPHILS % (AUTO) 0.2 %; HGB - HEMOGLOBIN 13.1 g/dL (12.0-16.0); LYMPHOCYTES # (AUTO) 1.4 10^3/uL (1.5-3.5); LYMPHOCYTES % (AUTO) 22.4 %; MEAN CORPUSCULAR HEMOGLOBIN 30.2 pg (27.0-31.0); MEAN CORPUSCULAR HGB CONC 33.2 g/dL (32.0-36.0); MEAN CORPUSCULAR VOLUME 90.8 fL (81.0-99.0); MEAN PLATELET VOLUME 9.4 fL (7.9-10.8); MONOCYTES # (AUTO) 0.6 10^3/uL (0.0-1.0); MONOCYTES % (AUTO) 9.9 %; NEUTROPHILS # (AUTO) 4.3 10^3/uL (1.5-6.6); NEUTROPHILS % (AUTO) 67.1 %; PLT - PLATELET COUNT 258 10^3/uL (130-450); RED BLOOD COUNT 4.34 10^6/uL (4.20-5.40); RED CELL DISTRIBUTION WIDTH 12.3 % (12.0-15.0); WHITE BLOOD COUNT 6.4 x10^3/uL (4.8-10.8)
[2019-11-22 18:36] LABS: RHEUMATOID FACTOR NEGATIVE (Negative)
[2019-11-22 18:40] LABS: ALBUMIN 4.3 g/dL (3.2-5.5); ALKALINE PHOSPHATASE 82 IU/L (42-121); ALT ALANINE AMINOTRANSFERASE 19 IU/L (10-60); AST ASPARTATE AMINOTRANSFERASE 17 IU/L (10-42); BILIRUBIN,TOTAL 1.2 mg/dL (0.2-1.0); BUN - BLOOD UREA NITROGEN 12 mg/dL (6-20); CALCIUM 8.8 mg/dL (8.5-10.3); CARBON DIOXIDE - CO2 26 mmol/L (21-32); CHLORIDE 105 mmol/L (101-111); CREATININE 0.6 mg/dL (0.4-1.0); GLUCOSE 145 mg/dL (70-100); SODIUM 139 mmol/L (135-145); TOTAL PROTEIN 6.4 g/dL (6.7-8.2)
[2019-11-22 19:07] LABS: CRP - C-REACTIVE PROTEIN < 1.0 mg/dL (0-1.0)
== END 2019-11-22 23:59 | disposition home or self-care (01) ==
LOC: DI.WCP 15:30
PROVIDERS: ATTEND Physician Assistant
DX: M19.042 Primary osteoarthritis, left hand (principal); M19.032 Primary osteoarthritis, left wrist; M25.50 Pain in unspecified joint; R53.83 Other fatigue
CPT/HCPCS: 36415; 80053; 84443; 84550; 85025; 85651; 86038; 86140; 86430

== ENCOUNTER 2019-12-15 12:01 | Outpatient (CLI) | payer OTHER | END 2019-12-15 12:02 | disposition home or self-care (01) | LOC: COV 12:01 | PROVIDERS: ATTEND Family Medicine | DX: Z01.812 Encounter for preprocedural laboratory examination (principal); Z20.828 Contact with and (suspected) exposure to other viral communicable diseases ==

== ENCOUNTER 2020-03-10 15:42 | Outpatient (CLI) | payer OTHER ==
--- NOTE | 2020-03-10 15:45 | XRAY Report ---
PROCEDURE: Lumbar Spine 2 View INDICATIONS: R SIDE SCIATICA TECHNIQUE: 3 views of the lumbar spine were acquired. COMPARISON: None. FINDINGS: Bones: 5 [id number] vertebrae are present. There is normal bony alignment. No acute vertebral body compression fractures. Mild degenerative endplate changes and bilateral facet arthrosis at L4-5 and L5-S1 levels are seen. No suspicious bony lesions. Soft tissues: Overlying bowel gas pattern is normal. No suspicious soft tissue calcifications. IMPRESSION: No acute lumbar spine fracture or dislocation. Mild degenerative disc disease in lower l umbar spine as above. Reviewed by: Neymar Paris MD on 03/10/2020 3:44 PM PDT Approved by: Neymar Paris MD on 03/10/2020 3:44 PM PDT Station ID: [id number]
== END 2020-03-10 23:59 | disposition home or self-care (01) ==
LOC: DI.WCP 15:42
PROVIDERS: ATTEND Family Medicine
DX: M51.16 Intervertebral disc disorders with radiculopathy, lumbar region (principal)
CPT/HCPCS: 72100

== ENCOUNTER 2020-05-01 08:00 | Outpatient (CLI) | payer OTHER ==
[2020-05-01 18:10] LABS: BASOPHILS % (AUTO) 0.2 %; HGB - HEMOGLOBIN 13.7 g/dL (12.0-16.0); LYMPHOCYTES # (AUTO) 1.5 10^3/uL (1.5-3.5); MEAN CORPUSCULAR HEMOGLOBIN 28.5 pg (27.0-31.0); MEAN PLATELET VOLUME 9.4 fL (7.9-10.8); MONOCYTES # (AUTO) 0.5 10^3/uL (0.0-1.0); MONOCYTES % (AUTO) 8.7 %; NEUTROPHILS % (AUTO) 65.8 %; PLT - PLATELET COUNT 258 10^3/uL (130-450); RED BLOOD COUNT 4.81 10^6/uL (4.20-5.40); RED CELL DISTRIBUTION WIDTH 12.7 % (12.0-15.0); WHITE BLOOD COUNT 6.1 x10^3/uL (4.8-10.8)
[2020-05-01 19:07] LABS: CHOL/HDL RATIO 3.6 (<4.4); CHOLESTEROL 160 mg/dL; HDL CHOLESTEROL 45 mg/dL; LDL CHOLESTEROL,CALCULATED 97 mg/dL; LDL/HDL RATIO 2.2 (<4.4); VLDL CHOLESTEROL 18 mg/dL
[2020-05-03 20:59] LABS: ANA SCREEN NEGATIVE (NEGATIVE)
== END 2020-05-01 23:59 | disposition home or self-care (01) ==
LOC: LAB.WCP 08:00
PROVIDERS: ATTEND Family Medicine
DX: E78.5 Hyperlipidemia, unspecified (principal); M25.50 Pain in unspecified joint
CPT/HCPCS: 36415; 80061; 83721; 85025; 85651; 86038; 86140

== ENCOUNTER 2020-05-12 13:22 | Outpatient (CLI) | payer OTHER ==
--- NOTE | 2020-05-15 10:19 | Mammography Report ---
BILATERAL DIGITAL SCREENING MAMMOGRAM 3D/2D: 05/12/2020 CLINICAL: Routine screening. Comparison is made to exams dated: 04/18/2017 mammogram, 03/19/2016 mammogram, 06/13/2014 mammogram, 05/19/2013 mammogram, 04/16/2012 mammogram, and 04/04/2011 mammogram - [facility]. There are scattered fibroglandular elements in both breasts. There is a possible 0.5 cm oval equal density focal asymmetry in the left breast at 12 o'clock middle depth. This is more prominent. No other significant masses, calcifications, or other findings are seen in either breast. IMPRESSION: INCOMPLETE: NEEDS ADDITIONAL IMAGING EVALUATION The possible 0.5 cm oval equal density focal asymmetry in the left breast is indeterminate. Addition al views with possible ultrasound are recommended. This exam was interpreted at Station ID: [id number]. NOTE: For mammograms, a report in lay terms will be sent to the patient. Approximately 15% of breast malignancies will not be visualized mammographically. In the management of a palpable breast mass, a negative mammogram must not discourage biopsy of a clinically suspicious lesion. Electronically Signed By: Joseph crow/aleena:05/12/2020 14:47:49 ACR BI-RADS Category 0: Incomplete 3340F PARENCHYMAL PATTERN: (A) - The breast(s) demonstrate(s) scattered fibroglandular densities. BI-RADS CATEGORY: (0) - 0 Mammo and [place] [id number] Immediate follow-up LATERALITY: (L)
== END 2020-05-12 13:23 | disposition home or self-care (01) ==
LOC: DI.N 13:22
DX: Z12.31 Encounter for screening mammogram for malignant neoplasm of breast (principal); R92.8 Other abnormal and inconclusive findings on diagnostic imaging of breast

== ENCOUNTER 2020-06-21 10:39 | Outpatient (CLI) | payer OTHER ==
--- NOTE | 2020-06-22 11:25 | Mammography Report ---
UNILATERAL LEFT DIGITAL DIAGNOSTIC MAMMOGRAM 3D/2D: 06/21/2020 CLINICAL: Additional evaluation requested from prior study. Comparison is made to exams dated: 05/12/2020 mammogram, 04/18/2017 mammogram, 03/19/2016 mammogram, 06/13/2014 mammogram, 05/19/2013 mammogram, and 04/16/2012 mammogram - [facility]. There are scattered fibroglandular elements in left breast. The previously described possible benign 0.5 cm oval equal density focal asymmetry in the left breast at 12 o'clock middle depth is not reproduced and presumably represented superimposed breast tissue. No other significant masses or calcifications are seen in the breast. IMPRESSION: BENIGN The previously described asymmetry disperses with additional views and is consistent with summation a rtifact. There is no mammographic evidence of malignancy. A 1 year screening mammogram is recommended. Findings and recommendations were conveyed to the patient during today's evaluation. This exam was interpreted at Station ID: [id number]. NOTE: For mammograms, a report in lay terms will be sent to the patient. Approximately 15% of breast malignancies will not be visualized mammographically. In the management of a palpable breast mass, a negative mammogram must not discourage biopsy of a clinically suspicious lesion. Electronically Signed By: Joseph Duron M.D. aty/:06/21/2020 12:12:37 ACR BI-RADS Category 2: Benign Finding(s) 3342F PARENCHYMAL PATTERN: (A) - The breast(s) demonstrate(s) scattered fibroglandular densities. BI-RADS CATEGORY: (2) - 2 RECOMMENDATION: (ANNUAL) - Recommend routine annual screening mammography. [id number] 1 year screening LATERALITY: (B)
== END 2020-06-21 10:40 | disposition home or self-care (01) ==
LOC: DI 10:39
PROVIDERS: ATTEND Physician Assistant
DX: N64.89 Other specified disorders of breast (principal)

== ENCOUNTER 2021-02-01 12:03 | Outpatient (CLI) | payer MEDICARE, OTHER ==
--- NOTE | 2021-02-01 14:13 | XRAY Report ---
PROCEDURE: Shoulder 3 View RT INDICATIONS: RIGHT SHOULDER PAIN TECHNIQUE: 4 views of the shoulder were acquired. COMPARISON: None. FINDINGS: Bones: No fractures or dislocations, but there is mild to moderate AC joint osteoarthritis and also mild glenohumeral joint osteoarthritic change.. No suspicious bony lesions. Visualized ribs appear intact. Soft tissues: No suspicious soft tissue calcifications. IMPRESSION: Mild to moderate AC joint osteoarthritis. Mild glenohumeral joint osteoarthritis. No tra jay. Reviewed by: Cosme Espinal MD on 02/01/2021 2:12 PM PDT Approved by: Cosme Espinal MD on 02/01/2021 2:12 PM PDT Station ID: [id number]
== END 2021-02-01 23:59 | disposition home or self-care (01) ==
LOC: DI.N 12:03
PROVIDERS: ATTEND Family Medicine
DX: M19.011 Primary osteoarthritis, right shoulder (principal)

== ENCOUNTER 2021-03-02 10:05 | Outpatient (CLI) | payer MEDICARE, OTHER ==
[2021-03-02 12:10] LABS: BASOPHILS % (AUTO) 0.3 %; EOSINOPHILS % (AUTO) 0.5 %; HCT - HEMATOCRIT 40.2 % (37.0-47.0); HGB - HEMOGLOBIN 12.7 g/dL (12.0-16.0); LYMPHOCYTES # (AUTO) 1.4 10^3/uL (1.5-3.5); LYMPHOCYTES % (AUTO) 21.1 %; MEAN CORPUSCULAR HEMOGLOBIN 27.7 pg (27.0-31.0); MEAN CORPUSCULAR HGB CONC 31.6 g/dL (32.0-36.0); MEAN CORPUSCULAR VOLUME 87.6 fL (81.0-99.0); MEAN PLATELET VOLUME 9.5 fL (7.9-10.8); MONOCYTES # (AUTO) 0.8 10^3/uL (0.0-1.0); MONOCYTES % (AUTO) 11.9 %; NEUTROPHILS # (AUTO) 4.2 10^3/uL (1.5-6.6); NEUTROPHILS % (AUTO) 65.9 %; PLT - PLATELET COUNT 258 10^3/uL (130-450); RED BLOOD COUNT 4.59 10^6/uL (4.20-5.40); RED CELL DISTRIBUTION WIDTH 12.9 % (12.0-15.0); WHITE BLOOD COUNT 6.4 x10^3/uL (4.8-10.8)
[2021-03-02 12:13] LABS: ESTIMATED AVERAGE GLUCOSE 105 mg/dL (70-100); HEMOGLOBIN A1c% 5.3 % (4.27-6.07)
[2021-03-02 12:28] LABS: ALBUMIN 4.7 g/dL (3.2-5.5); ALBUMIN/GLOBULIN RATIO 2.2 (1.0-2.2); ALKALINE PHOSPHATASE 93 IU/L (42-121); ALT ALANINE AMINOTRANSFERASE 17 IU/L (10-60); AST ASPARTATE AMINOTRANSFERASE 14 IU/L (10-42); BILIRUBIN,TOTAL 1.1 mg/dL (0.2-1.0); BUN - BLOOD UREA NITROGEN 17 mg/dL (6-20); CALCIUM 9.5 mg/dL (8.5-10.3); CARBON DIOXIDE - CO2 29 mmol/L (21-32); CHLORIDE 106 mmol/L (101-111); CHOL/HDL RATIO 4.7 (<4.4); CHOLESTEROL 207 mg/dL; CREATININE 0.7 mg/dL (0.4-1.0); GFR - MDRD 84 (>89); GLUCOSE 109 mg/dL (70-100); HDL CHOLESTEROL 44 mg/dL; LDL CHOLESTEROL,CALCULATED 146 mg/dL; LDL/HDL RATIO 3.3 (<4.4); POTASSIUM 4.1 mmol/L (3.5-5.0); SODIUM 145 mmol/L (135-145); TOTAL PROTEIN 6.8 g/dL (6.7-8.2); TRIGLYCERIDES 86 mg/dL; VLDL CHOLESTEROL 17 mg/dL
[2021-03-02 12:30] LABS: THYROID STIMULATING HORMONE 3.41 uIU/mL (0.34-5.60)
[2021-03-02 18:10] LABS: CREATININE,URINE 225.5 mg/dL; MICROALBUM/CREATININE RATIO,UR 131.3 ug/mg (<30.0); MICROALBUMIN,URINE 29.6 mg/dL (0-300.0)
== END 2021-03-02 23:59 | disposition home or self-care (01) ==
LOC: LAB.WCP 10:05
PROVIDERS: ATTEND Internal Medicine
DX: R73.9 Hyperglycemia, unspecified (principal); E78.00 Pure hypercholesterolemia, unspecified; J20.9 Acute bronchitis, unspecified
CPT/HCPCS: 36415; 80053; 80061; 82043; 82570; 83036; 83721; 84443; 85025

== ENCOUNTER 2021-03-02 15:16 | Outpatient (CLI) | payer MEDICARE, OTHER ==
--- NOTE | 2021-03-02 15:59 | XRAY Report ---
PROCEDURE: Chest 2 View X-Ray INDICATIONS: REACTIVE AIRWAY DISEASE TECHNIQUE: 2 view(s) of the chest. COMPARISON: None. FINDINGS: Surgical changes and devices: None. Lungs and pleura: No pleural effusions or pneumothorax. Mildly increased bronchovascular markings in bilateral hilar region are seen with mild bronchial wall thickening. No focal infiltrate. Mediastinum: Mediastinal contours are normal. Heart size is normal. Bones and chest wall: No suspicious bony abnormalities. Soft tissues appear unremarkable. IMPRESSION: Finding is consistent with reactive airway disease such as bronchitis or lateral illness . No focal infiltrate, pleural effusion or pneumothorax. Reviewed by: Neymar Paris MD on 03/02/2021 3:58 PM PDT Approved by: Neymar Paris MD on 03/02/2021 3:58 PM PDT Station ID: [id number]
== END 2021-03-02 15:17 | disposition home or self-care (01) ==
LOC: DI.N 15:16
PROVIDERS: ATTEND Internal Medicine
DX: J45.909 Unspecified asthma, uncomplicated (principal); R73.9 Hyperglycemia, unspecified; E78.00 Pure hypercholesterolemia, unspecified; J20.9 Acute bronchitis, unspecified
CPT/HCPCS: 36415; 80053; 80061; 82043; 82570; 83036; 83721; 84443; 85025

== ENCOUNTER 2021-03-20 09:15 | Outpatient (CLI) | payer MEDICARE, OTHER | END 2021-03-20 09:16 | disposition home or self-care (01) | LOC: RT 09:15 | PROVIDERS: ATTEND Internal Medicine | DX: J45.909 Unspecified asthma, uncomplicated (principal); R05.3 Chronic cough | CPT/HCPCS: 94010 ==

== ENCOUNTER 2021-05-04 08:12 | Outpatient (CLI) | payer MEDICARE, OTHER ==
--- NOTE | 2021-05-04 19:02 | DEXA Report ---
PROCEDURE: Dexa Spine and/or Hip INDICATIONS: POST MENOPAUSAL TECHNIQUE: Dual energy x-ray absorptiometry (DXA) was performed on a [employer] System. Regions measur ed are the AP Spine, femoral neck, and if needed forearm. COMPARISON: None. FINDINGS: Lumbar Spine: Bone Mineral Density 1.507 g/cm/cm,T score 2.7, normal Left Femoral Neck: Bone Mineral Density 0.877 g/cm/cm, T score -1.2, osteopenia. (T score greater or equal to -1.0: NORMAL) (T score from -1.1 to -2.4: OSTEOPENIA) (T score less than or equal to -2.5 to: OSTEOPOROSIS) Impression: Bone mineral density as detailed above. Patients with diagnosis of osteoporosis or osteopenia should have regular bone mineral density assess ment. For those eligible for Medicare, routine testing is allowed once every 2 years. Testing frequ ency can be increased for patients who have rapidly progressing disease or for those who are receivin g medical therapy to restore bone mass. Reviewed by: Gilberto Gambino MD on 05/04/2021 7:01 PM PST Approved by: Gilberto Gambino MD on 05/04/2021 7:01 PM PST Station ID: [id number]
== END 2021-05-04 08:13 | disposition home or self-care (01) ==
LOC: DI 08:12
PROVIDERS: ATTEND Internal Medicine
DX: Z78.0 Asymptomatic menopausal state (principal); M85.88 Other specified disorders of bone density and structure, other site

== ENCOUNTER 2021-05-04 08:15 | Outpatient (CLI) | payer MEDICARE, OTHER ==
--- NOTE | 2021-05-07 13:59 | Mammography Report ---
BILATERAL DIGITAL SCREENING MAMMOGRAM 3D/2D: 05/04/2021 CLINICAL: Routine screening. Comparison is made to exams dated: 06/21/2020 mammogram, 05/12/2020 mammogram, 04/18/2017 mammogram, 03/19/2016 mammogram, 06/13/2014 mammogram, and 05/19/2013 mammogram - [facility]. The tissue of both breasts is heterogeneously dense. This may lower the sensitivity of mammography. No significant masses, calcifications, or other findings are seen in either breast. There has been no significant interval change. IMPRESSION: NEGATIVE There is no mammographic evidence of malignancy. A 1 year screening mammogram is recommended. This exam was interpreted at Station ID: [id number]. NOTE: For mammograms, a report in lay terms will be sent to the patient. Approximately 15% of breast malignancies will not be visualized mammographically. In the management of a palpable breast mass, a negative mammogram must not discourage biopsy of a clinically suspicious lesion. Electronically Signed By: Karina holman/aleena:05/04/2021 18:00:35 ACR BI-RADS Category 1: Negative 3341F PARENCHYMAL PATTERN: (D) - The breast(s) demonstrate(s) heterogeneously dense fibroglandular juliet zaragoza. BI-RADS CATEGORY: (1) - 1 RECOMMENDATION: (ANNUAL) - Recommend routine annual screening mammography. [id number] 1 year screening LATERALITY: (B)
== END 2021-05-04 08:16 | disposition home or self-care (01) ==
LOC: DI 08:15
PROVIDERS: ATTEND Internal Medicine
DX: Z12.31 Encounter for screening mammogram for malignant neoplasm of breast (principal)

== ENCOUNTER 2021-07-31 09:51 | Outpatient (CLI) | payer MEDICARE, OTHER ==
[2021-07-31 12:36] LABS: ALT ALANINE AMINOTRANSFERASE 18 IU/L (10-60); CHOL/HDL RATIO 3.1 (<4.4); CHOLESTEROL 158 mg/dL; HDL CHOLESTEROL 51 mg/dL; LDL CHOLESTEROL,CALCULATED 92 mg/dL; LDL/HDL RATIO 1.8 (<4.4); TRIGLYCERIDES 75 mg/dL; VLDL CHOLESTEROL 15 mg/dL
== END 2021-07-31 09:52 | disposition home or self-care (01) ==
LOC: LAB.N 09:51
PROVIDERS: ATTEND Internal Medicine
DX: I25.2 Old myocardial infarction (principal)
CPT/HCPCS: 36415; 80061; 83721; 84460

== ENCOUNTER 2021-09-25 08:00 | Outpatient (CLI) | payer MEDICARE, OTHER | END 2021-09-25 08:01 | disposition home or self-care (01) | LOC: LAB 08:00 | PROVIDERS: ATTEND Nurse Practitioner Family | DX: J22 Unspecified acute lower respiratory infection (principal); Z20.822 Contact with and (suspected) exposure to COVID-19 ==

== ENCOUNTER 2021-09-25 16:25 | Outpatient (CLI) | payer MEDICARE, OTHER ==
--- NOTE | 2021-09-25 17:04 | XRAY Report ---
PROCEDURE: Chest 2 View X-Ray INDICATIONS: COUGH TECHNIQUE: 2 view(s) of the chest. COMPARISON: None. FINDINGS: Surgical changes and devices: None. Lungs and pleura: Streaky left basilar atelectasis and adjacent consolidation which may be infectious . Lungs otherwise clear. No pleural abnormality. Mediastinum: Mediastinal contours are normal. Heart size is normal. Bones and chest wall: No suspicious bony abnormalities. Soft tissues appear unremarkable. IMPRESSION: Streaky left basilar airspace consolidation and/or atelectasis. Follow-up to resolution recommended. Reviewed by: Deshaun May MD on 09/25/2021 5:03 PM PDT Approved by: Deshaun May MD on 09/25/2021 5:03 PM PDT Station ID: [id number]
== END 2021-09-25 16:26 | disposition home or self-care (01) ==
LOC: DI.N 16:25
PROVIDERS: ATTEND Nurse Practitioner Family
DX: J22 Unspecified acute lower respiratory infection (principal); R05.9 Cough, unspecified; R91.8 Other nonspecific abnormal finding of lung field
CPT/HCPCS: 71046; U0004

== ENCOUNTER 2021-10-12 08:33 | Outpatient (CLI) | payer MEDICARE, OTHER ==
--- NOTE | 2021-10-12 10:07 | XRAY Report ---
PROCEDURE: Chest 2 View X-Ray INDICATIONS: ACUTE LOWER RESP INFECTION TECHNIQUE: 2 view(s) of the chest. COMPARISON: September 25, 2021 FINDINGS: SUPPORT DEVICES: None. LUNGS/PLEURA: Left basilar plate atelectasis. Remaining lung zones well aerated. No large pleural eff usion or space-occupying pneumothorax. MEDIASTINUM: The cardiomediastinal silhouette is within normal limits. BONES/SOFT TISSUES: No acute abnormality. IMPRESSION: 1.Left basilar atelectasis/scarring. Reviewed by: Gilberto Gambino MD on 10/12/2021 10:06 AM PDT Approved by: Gilberto Gambino MD on 10/12/2021 10:06 AM PDT Station ID: [id number]
== END 2021-10-12 08:34 | disposition home or self-care (01) ==
LOC: DI.N 08:33
PROVIDERS: ATTEND Nurse Practitioner Family
DX: J98.11 Atelectasis (principal)

== ENCOUNTER 2022-01-26 07:57 | Outpatient (CLI) | payer MEDICARE, OTHER ==
--- NOTE | 2022-01-26 12:21 | CT Report ---
PROCEDURE: CHEST WO INDICATIONS: ABN CHEST XRAY TECHNIQUE: Noncontrast 1mm axial images were acquired from the pulmonary apices to the posterior costophrenic an gles. Axial 5 mm soft tissue kernel reconstructions were performed as well as 8 mm axial MIP and cor onal and sagittal 5 mm reformations. For radiation dose reduction, the following was used: automate d exposure control, adjustment of mA and/or kV according to patient size. COMPARISON: Correlation is made with prior chest radiograph, 10/12/2021, 09/25/2021. Correlation is ma de with overlapping portions of the abdomen and pelvis CT, 02/19/2019. FINDINGS: Image quality: Excellent. Lungs and pleura: Minimal dependent atelectasis is seen within the left lower lobe. No pleural effusions or pneumothorax. Central and peripheral airways are patent and normal in calibe r. Mediastinum: Along the right heart border, there is a lobulated soft tissue focus that measures 3.5 x 3 cm in greatest axial dimension, with a craniocaudal extent of 3.9 cm, as on series 9 image 17 and on series 3 image 37. No additional enlarged mediastinal lymph nodes are seen. Heart size is normal. No pericardial effusion. Thoracic aorta and central pulmonary arteries are no rmal in size. Esophagus is normal in caliber. No hiatal hernia. Bones and chest wall: No suspicious bony lesions. No vertebral body compression fractures. There is accentuated thoracic kyphosis. Age-appropriate degenerative changes are seen. No axillary or supr aclavicular adenopathy by size criteria. The thyroid is normal in size and there are no incidental f indings. Abdomen: A few dependent gallstones can be seen, as on series 3 image 59. Visualized upper abdominal solid organs and bowel loops appear normal in the absence of contrast. IMPRESSION: Mild dependent atelectasis can be seen involving the left lower lobe. A limited soft tissue mass can be seen along the right aspect of the heart border, which is attribute d to lymph nodes. This is not significantly changed compared to 2019. Incidental note is made of: Gallstones Reviewed by: Hayder Romero MD on 01/26/2022 11:20 AM JESSICA Approved by: Hayder Romero MD on 01/26/2022 11:20 AM NVZANA Station ID: [id number]
== END 2022-01-26 07:58 | disposition home or self-care (01) ==
LOC: DI 07:57
PROVIDERS: ATTEND Family Medicine
DX: R91.8 Other nonspecific abnormal finding of lung field (principal); J45.998 Other asthma; J98.11 Atelectasis

== ENCOUNTER 2022-07-01 10:06 | Outpatient (CLI) | payer MEDICARE, OTHER ==
[2022-07-03 03:09] LABS: HIV SCREEN 4TH GENERATION Non Reactive (Non Reactive)
== END 2022-07-01 10:07 | disposition home or self-care (01) ==
LOC: LAB.N 10:06
PROVIDERS: ATTEND Physician Assistant
DX: D61.818 Other pancytopenia (principal)
CPT/HCPCS: 36415; G0475; 87389

== ENCOUNTER 2022-07-03 10:27 | Outpatient (CLI) | payer MEDICARE, OTHER ==
[2022-07-03 10:58] LABS: BASOPHILS % (AUTO) 0.4 %; HCT - HEMATOCRIT 33.1 % (37.0-47.0); HGB - HEMOGLOBIN 10.2 g/dL (12.0-16.0); LYMPHOCYTES # (AUTO) 1.2 10^3/uL (1.5-3.5); LYMPHOCYTES % (AUTO) 23.2 %; MEAN CORPUSCULAR HEMOGLOBIN 26.8 pg (27.0-31.0); MEAN CORPUSCULAR HGB CONC 30.8 g/dL (32.0-36.0); MEAN CORPUSCULAR VOLUME 86.9 fL (81.0-99.0); MEAN PLATELET VOLUME 9.5 fL (7.9-10.8); MONOCYTES # (AUTO) 0.5 10^3/uL (0.0-1.0); MONOCYTES % (AUTO) 10.2 %; NEUTROPHILS # (AUTO) 3.2 10^3/uL (1.5-6.6); PLT - PLATELET COUNT 229 10^3/uL (130-450); RED BLOOD COUNT 3.81 10^6/uL (4.20-5.40); RED CELL DISTRIBUTION WIDTH 13.5 % (12.0-15.0)
[2022-07-03 11:12] LABS: ALBUMIN 3.3 g/dL (3.2-5.5); ALBUMIN/GLOBULIN RATIO 1.2 (1.0-2.2); BILIRUBIN,DIRECT 0.1 mg/dL (0.1-0.5); CALCIUM 8.6 mg/dL (8.5-10.3); CREATININE 0.7 mg/dL (0.4-1.0); POTASSIUM 3.5 mmol/L (3.5-5.0)
== END 2022-07-03 10:28 | disposition home or self-care (01) ==
LOC: LAB 10:27
PROVIDERS: ATTEND Physician Assistant
DX: D61.818 Other pancytopenia (principal)
CPT/HCPCS: 36415; 80053; 81599; 82248; 83010; 83615; 83625; 85025

== ENCOUNTER 2023-03-05 09:53 | Outpatient (CLI) | payer MEDICARE, OTHER ==
[2023-03-05 10:23] LABS: % IRON SATURATION 16 % (20-50); ALBUMIN 4.4 g/dL (3.2-5.5); ALBUMIN/GLOBULIN RATIO 1.7 (1.0-2.2); ALKALINE PHOSPHATASE 88 IU/L (42-121); ALT ALANINE AMINOTRANSFERASE 14 IU/L (10-60); AST ASPARTATE AMINOTRANSFERASE 19 IU/L (10-42); BILIRUBIN,TOTAL 1.2 mg/dL (0.2-1.0); BUN - BLOOD UREA NITROGEN 13 mg/dL (6-20); CALCIUM 9.4 mg/dL (8.5-10.3); CARBON DIOXIDE - CO2 31 mmol/L (21-32); CHLORIDE 105 mmol/L (101-111); CHOL/HDL RATIO 3.7 (<4.4); CHOLESTEROL 145 mg/dL; CREATININE 0.6 mg/dL (0.6-1.3); GFR - MDRD 100 (>89); GLUCOSE 100 mg/dL (74-104); HDL CHOLESTEROL 39 mg/dL; IRON 53 ug/dL (50-212); LDL CHOLESTEROL,CALCULATED 73 mg/dL; LDL/HDL RATIO 1.9 (<4.4); POTASSIUM 4.1 mmol/L (3.5-4.5); SODIUM 140 mmol/L (135-145); TOTAL IRON BINDING CAPACITY 323 ug/dL (250-450); TRANSFERRIN 231 mg/dL (203-362); TRIGLYCERIDES 164 mg/dL (48-352); VLDL CHOLESTEROL 33 mg/dL
[2023-03-05 10:38] LABS: THYROID STIMULATING HORMONE 3.34 uIU/mL (0.34-5.60)
[2023-03-05 10:46] LABS: FERRITIN 50.6 ng/mL (11.0-306.8)
[2023-03-05 13:05] LABS: ESTIMATED AVERAGE GLUCOSE 94 mg/dL (70-100); HEMOGLOBIN A1c% 4.9 % (4.27-6.07)
== END 2023-03-05 09:54 | disposition home or self-care (01) ==
LOC: LAB 09:53
PROVIDERS: ATTEND Internal Medicine
DX: E78.5 Hyperlipidemia, unspecified (principal); R73.01 Impaired fasting glucose; D64.9 Anemia, unspecified; R00.8 Other abnormalities of heart beat
CPT/HCPCS: 36415; 80053; 80061; 82607; 82728; 82746; 83036; 83540; 83721; 84443; 84466

== ENCOUNTER 2023-04-08 10:48 | Outpatient (CLI) | payer MEDICARE, OTHER | END 2023-04-08 10:49 | disposition home or self-care (01) | LOC: RT 10:48 | PROVIDERS: ATTEND Internal Medicine | DX: R05.3 Chronic cough (principal) | CPT/HCPCS: 94010 ==

== ENCOUNTER 2023-05-29 09:30 | Outpatient (CLI) | payer MEDICARE, OTHER ==
--- NOTE | 2023-05-29 10:15 | DEXA Report ---
PROCEDURE: Dexa Spine and/or Hip INDICATIONS: POST MENOPAUSAL TECHNIQUE: Dual energy x-ray absorptiometry (DXA) was performed on a MOWGLI System. Regions measur ed are the AP Spine, femoral neck, and if needed forearm. COMPARISON: 05/04/2021 FINDINGS: Lumbar Spine: Bone Mineral Density 1.517 g/cm/cm,T score 2.8. There has been no statistically significant change i n bone mineral density since the prior study. Left Femoral Neck: Bone Mineral Density 0.845 g/cm/cm, T score -1.4. Left Hip: Bone Mineral Density 0.922 g/cm/cm,T score -0.7. There has been no statistically significant change i n bone mineral density since the prior study. (T score greater or equal to -1.0: NORMAL) (T score from -1.1 to -2.4: OSTEOPENIA) (T score less than or equal to -2.5 to: OSTEOPOROSIS) Impression: By WHO criteria, this patient has low bone density (osteopenia). No statistical interval change in bone minteral density of the lumbar spine. No statistical interval change in bone minteral density of the hip. Patients with diagnosis of osteoporosis or osteopenia should have regular bone mineral density assess ment. For those eligible for Medicare, routine testing is allowed once every 2 years. Testing frequ ency can be increased for patients who have rapidly progressing disease or for those who are receivin g medical therapy to restore bone mass. Reviewed by: Gagandeep Oliveira MD on 05/29/2023 10:14 AM PST Approved by: Gagandeep Oliveira MD on 05/29/2023 10:14 AM PST Station ID: [id number]
== END 2023-05-29 09:31 | disposition home or self-care (01) ==
LOC: DI 09:30
PROVIDERS: ATTEND Internal Medicine
DX: M85.88 Other specified disorders of bone density and structure, other site (principal); Z78.0 Asymptomatic menopausal state

== ENCOUNTER 2023-06-03 09:54 | Outpatient (CLI) | payer MEDICARE, OTHER ==
[2023-06-03 10:36] LABS: % IRON SATURATION 14 % (20-50); ALBUMIN 4.3 g/dL (3.2-5.5); ALBUMIN/GLOBULIN RATIO 1.7 (1.0-2.2); ALKALINE PHOSPHATASE 67 IU/L (42-121); ALT ALANINE AMINOTRANSFERASE 15 IU/L (10-60); AST ASPARTATE AMINOTRANSFERASE 19 IU/L (10-42); BUN - BLOOD UREA NITROGEN 20 mg/dL (6-20); CALCIUM 9.2 mg/dL (8.5-10.3); CARBON DIOXIDE - CO2 26 mmol/L (21-32); CHLORIDE 106 mmol/L (101-111); CHOL/HDL RATIO 3.7 (<4.4); CHOLESTEROL 147 mg/dL; CREATININE 0.5 mg/dL (0.6-1.3); GFR - MDRD 123 (>89); GLUCOSE 100 mg/dL (74-104); HDL CHOLESTEROL 40 mg/dL; IRON 46 ug/dL (50-212); LDL CHOLESTEROL,CALCULATED 84 mg/dL; LDL/HDL RATIO 2.1 (<4.4); SODIUM 138 mmol/L (135-145); TOTAL IRON BINDING CAPACITY 340 ug/dL (250-450); TOTAL PROTEIN 6.9 g/dL (6.4-8.9); TRANSFERRIN 243 mg/dL (203-362); TRIGLYCERIDES 116 mg/dL (48-352); VLDL CHOLESTEROL 23 mg/dL
[2023-06-03 10:40] LABS: FERRITIN 29.8 ng/mL (11.0-306.8)
[2023-06-03 11:37] LABS: ESTIMATED AVERAGE GLUCOSE 108 mg/dL (70-100); HEMOGLOBIN A1c% 5.4 % (4.27-6.07)
== END 2023-06-03 09:55 | disposition home or self-care (01) ==
LOC: LAB 09:54
PROVIDERS: ATTEND Internal Medicine
DX: E78.5 Hyperlipidemia, unspecified (principal); R73.01 Impaired fasting glucose; D64.9 Anemia, unspecified
CPT/HCPCS: 36415; 80053; 80061; 82728; 83036; 83540; 83721; 84466

== ENCOUNTER 2023-08-22 13:02 | Outpatient (CLI) | payer MEDICARE, OTHER ==
--- NOTE | 2023-08-22 16:17 | XRAY Report ---
PROCEDURE: Lumbar Spine 2-3V INDICATIONS: RIGHT SCIATICA TECHNIQUE: 3 views of the lumbar spine were acquired. COMPARISON: None. FINDINGS: Bones: 5 [id number] vertebrae are present. There is normal bony alignment. No acute vertebral body compression fractures. No suspicious bony lesions. Moderate multilevel lumbar spondylosis and advanced mid and lower lumbar facet arthropathy. Degenerative endplate changes and disc space loss. Endplate osteophyte formation. There is also levocurvature of the lumbar spine centered at L2. Soft tissues: Overlying bowel gas pattern is normal. No suspicious soft tissue calcifications. IMPRESSION: Lumbar spine without acute osseous abnormalities. Moderate multilevel lumbar spondylosis. Levocurvature of the lumbar spine centered at L2. Reviewed by: Joseph Duron MD on 08/22/2023 4:15 PM PDT Approved by: Joseph Duron MD on 08/22/2023 4:15 PM PDT Station ID: [id number]
== END 2023-08-22 13:03 | disposition home or self-care (01) ==
LOC: DI 13:02
PROVIDERS: ATTEND Physician Assistant Medical
DX: M54.31 Sciatica, right side (principal); M47.816 Spondylosis without myelopathy or radiculopathy, lumbar region

== ENCOUNTER 2023-10-01 09:58 | Outpatient (CLI) | payer MEDICARE, OTHER ==
--- NOTE | 2023-10-02 10:58 | Mammography Report ---
BILATERAL DIGITAL SCREENING MAMMOGRAM 3D/2D: 10/01/2023 CLINICAL: Routine screening. Family history of breast cancer. Comparison is made to exams dated: 05/04/2021 mammogram, 06/21/2020 mammogram, 05/12/2020 mammogram, 06/18/2016 mammogram, 03/19/2016 mammogram, and 06/13/2014 mammogram - [facility]. There are scattered areas of fibroglandular density in both breasts (category b / 25%-50% glandular t issue). No significant masses, calcifications, or other findings are seen in either breast. There has been no significant interval change. IMPRESSION: NEGATIVE There is no mammographic evidence of malignancy. A 1 year screening mammogram is recommended. Based on the Tyrer Cuzick model (a risk assessment model) the patient's lifetime risk is 10.7% and he r 10 year risk is 6.0%. According to the ACR, ACS, and NCCN guidelines, an annual breast MRI exam jeremie ng with mammogram is recommended if the patient's lifetime risk is 20% or greater. This exam was interpreted at Station ID: [id number]. NOTE: For mammograms, a report in lay terms will be sent to the patient. Approximately 15% of breast malignancies will not be visualized mammographically. In the management of a palpable breast mass, a negative mammogram must not discourage biopsy of a clinically suspicious lesion. Electronically Signed By: Cinthia loaiza/aleena:10/01/2023 13:21:45 letter sent: No_Letter ACR BI-RADS Category 1: Negative 3341F PARENCHYMAL PATTERN: (A) - The breast(s) demonstrate(s) scattered fibroglandular densities. BI-RADS CATEGORY: (1) - 1 RECOMMENDATION: (ANNUAL) - Recommend routine annual screening mammography. [id number] 1 year screening LATERALITY: (B)
== END 2023-10-01 09:59 | disposition home or self-care (01) ==
LOC: DI.N 09:58
PROVIDERS: ATTEND Internal Medicine
DX: Z12.31 Encounter for screening mammogram for malignant neoplasm of breast (principal); R92.323 Mammographic fibroglandular density, bilateral breasts; Z80.3 Family history of malignant neoplasm of breast

== ENCOUNTER 2023-10-07 10:26 | Outpatient (CLI) | payer MEDICARE, OTHER ==
[2023-10-07 10:40] LABS: HCT - HEMATOCRIT 43.7 % (37.0-47.0); HGB - HEMOGLOBIN 13.6 g/dL (12.0-16.0); LYMPHOCYTES # (AUTO) 1.1 10^3/uL (1.5-3.5); LYMPHOCYTES % (AUTO) 34.6 %; MEAN CORPUSCULAR HEMOGLOBIN 26.1 pg (27.0-31.0); MEAN CORPUSCULAR HGB CONC 31.1 g/dL (32.0-36.0); MEAN CORPUSCULAR VOLUME 83.9 fL (81.0-99.0); MEAN PLATELET VOLUME 9.8 fL (7.9-10.8); MONOCYTES # (AUTO) 0.5 10^3/uL (0.0-1.0); MONOCYTES % (AUTO) 13.8 %; NEUTROPHILS # (AUTO) 1.7 10^3/uL (1.5-6.6); NEUTROPHILS % (AUTO) 51.6 %; PLT - PLATELET COUNT 177 10^3/uL (130-450); RED BLOOD COUNT 5.21 10^6/uL (4.20-5.40); RED CELL DISTRIBUTION WIDTH 13.5 % (12.0-15.0); WHITE BLOOD COUNT 3.3 x10^3/uL (4.8-10.8)
[2023-10-07 10:50] LABS: ALBUMIN 4.3 g/dL (3.2-5.5); ALBUMIN/GLOBULIN RATIO 1.5 (1.0-2.2); BILIRUBIN,TOTAL 1.1 mg/dL (0.2-1.0); CALCIUM 9.5 mg/dL (8.5-10.3); CREATININE 0.6 mg/dL (0.6-1.3); POTASSIUM 4.3 mmol/L (3.5-4.5); TOTAL PROTEIN 7.1 g/dL (6.4-8.9)
== END 2023-10-07 10:27 | disposition home or self-care (01) ==
LOC: LAB 10:26
PROVIDERS: ATTEND Internal Medicine
DX: R73.01 Impaired fasting glucose (principal); D83.9 Common variable immunodeficiency, unspecified
CPT/HCPCS: 36415; 80053; 82784; 85025